=== PATIENT | male | born 1935 | race Caucasian/White ===

== ENCOUNTER 2023-09-26 17:23 | Emergency (ER) | payer OTHER, SELFPAY ==
[2023-09-26 17:36] VITALS: BP 169/80
--- NOTE | 2023-09-26 20:34 | ED.GENMED ---
History of Present Illness
General
Chief Complaint: Catheter/Tube Problem
Time Seen by Provider: 09/26/23 20:24
Travel History
Have you had any contact with someone who has COVID-19?: No
Do you have any symptoms of coronavirus? Fever > 100 degrees, chills, cough, shortness of breath, sore throat, loss of taste or smell, muscle aches, or headache?: No
History of Present Illness
History of Present Illness:
HPI: Patient presents due to concern for clogged G-tube to the point that is now nonfunctional. They come in here wanting to have the G-tube replaced. There are no other new complaints. He has a feeding tube due to prior stroke. His son and
brought him here by private vehicle.
EXAM:
GENERAL: Appears somewhat chronically ill
HEENT: Moist oral mucosa
ABDOMEN: Soft with no peritoneal signs, no tenderness, ventral wall hernia noted which is soft, 20 Armenian feeding tube noted in the left upper quadrant
NEUROLOGIC: Evidence of prior stroke, moderate communication deficit, marked dysarthria
PSYCHIATRIC: Appropriate mental status, normal insight and judgement
EXTREMITIES: Nontender, no edema, moves all extremities equally
SKIN: No rash, no lesions
TIME OF INITIAL ENCOUNTER: 8:30 PM
NUMBER AND COMPLEXITY OF PROBLEMS ADDRESSED AT THE ENCOUNTER
� Chronic conditions affecting care: Prior CVA with significant deficits, abdominal wall hernia, former smoker, high blood pressure
� Acute Exacerbation and/or Progression of Chronic Illness: This is an acute but recurring problem
� Differential Diagnosis includes: Feeding tube clogged, feeding tube malposition
AMOUNT AND/OR COMPLEXITY OF DATA TO BE REVIEWED AND ANALYZED
� I performed an independent evaluation of and my interpretation is:
EKG:
CT:
X-rays: X-ray with contrast shows good position of the feeding tube
Laboratory Studies:
Other:
� Review of other/old records: I reviewed records, the patient had a feeding tube visit to the ED in 2021 and 2022
� Clinical information was obtained by an independent historian: I spoke to and son at bedside
� Prescriptions/Medications Considered but not given:
� Further testing considered but not performed:
RISK OF COMPLICATIONS AND/OR MORBIDITY OR MORTALITY OF PATIENT MANAGEMENT
� Social determinants of health affecting care: Lives at home
� Discussion with other providers:
� Escalation of care including admission/observation vs risk of discharge considered: I placed a new 20 Armenian tube difficulty in 1 attempt. Will send for confirmatory study. Imaging study confirmed.
Past History
Past History
ED Past Medical History: CVA (Right sided weakness), GERD, HTN, Hypercholesterolemia and Other (Intracranial hemorrhage, left retinal hemorrhage, PNA, Dysphasia, PNA, ); Negative IDDM
ED Past Surgical History: Cardiac (Pacemaker), Orthopedic (Right hip replacement, right hand surgery, ), Urological (Right testicular repair) and Other (hernia repair X 2, g tube)
Social History
Tobacco: Former smoker (Quit many years ago)
Alcohol: None
Drug: None
Personal:
Living: with family
Employment: Retired
Family History
Family History: Hypertension
Phy Exam
Physical Exam
Physical Exam:
See HPI
Course
Orders/Labs/Results
Orders:
Orders
09/26/23 20:50
Tube Check [CR Cont Inj Eval Tube(by Rad)] Urgent
Comment:
Reason For Exam: new tube placed in ED
Vital Signs
Initial and Last Documented VS:
Initial Vital Signs
Temp Pulse Resp BP Pulse Ox
98.0 F 63 20 169/80 95
09/26/23 17:36 09/26/23 17:36 09/26/23 17:36 09/26/23 17:36 09/26/23 17:36
Last Documented Vital Signs
Temp Pulse Resp BP Pulse Ox
98.0 F 63 20 169/80 95
09/26/23 17:36 09/26/23 17:36 09/26/23 17:36 09/26/23 17:36 09/26/23 17:36
Procedures
Other
Indication for procedure:: G-tube replacement
Procedure completed by: NeDr. Encinas
Consent form signed: No
Additional Procedure:
I placed a feeding tube (new 20 Armenian) in 1 attempt and instilled 10 mL of saline
*Critical Care Note
Total Time (30-74mins, 75-104mins- exclusive of procedures): Not Applicable
ED Attending Note
-
Portions of this chart may have been created with voice recognition software.� Occasional wrong word or��sound alike� substitutions may have occurred due to the inherent limitations of voice recognition software.
Discharge Plan
Departure
Patient Disposition: Home (Routine Discharge)
Date of Disposition: 09/26/23
Time of Disposition: 21:58
Patient with high blood pressure during this ER visit?: Yes
Discharge Problem:
Blockage of feeding tube
Prescriptions:
No Action
ascorbic acid (vitamin C) [Vitamin C] 500 MG tablet
500 mg feeding tube DAILY 0RF
cholecalciferol (vitamin D3) 1,000 UNITS tablet
1,000 units feeding tube Q48H 0RF
clopidogrel 75 MG tablet
75 mg feeding tube DAILY Qty: 30 0RF
Rx Instructions:
HOLD post procedure- ok to resume Monday 08/28
aluminum hydrox-magnesium carb [Acid Gone Antacid] 15 ML suspension
15 ml feeding tube QIDPRN PRN (Reason: gas) 0RF
fluoxetine 20 MG capsule
20 mg PO DAILY Qty: 30 0RF
atorvastatin 40 MG tablet
40 mg feeding tube QPM Qty: 30 0RF
famotidine 40 MG tablet
40 mg feeding tube BID Qty: 60 0RF
potassium chloride 20 MEQ/15 ML liquid
20 meq feeding tube DAILY Qty: 30 0RF
amlodipine 10 MG tablet
10 mg feeding tube DAILY Qty: 30 0RF
hydrochlorothiazide 25 MG tablet
25 mg feeding tube DAILY Qty: 30 0RF
losartan 100 MG tablet
100 mg feeding tube DAILY Qty: 30 0RF
Referrals:
Michael Colunga MD [Family Provider] -
Interventions
Interventions:
*Risk Screen - Suicide Last Done: 09/26/23 17:36
*General Assessment Last Done: 09/26/23 17:36
*Neglect/Abuse Screening Last Done: 09/26/23 17:36
ED- Fall Risk Assessment Last Done: 09/26/23 20:39
*ED COVID-19 Vaccine History Last Done: 09/26/23 20:39
AK-Kwmwda-Ajirfblkwn Assessment Last Done: 09/26/23 20:39
ED-Male Genitourinary Assessment Last Done: 09/26/23 20:39
Discharge Date and Time
Print Language: JAPANESE
[2023-09-26 22:22] VITALS: BP 183/83
== END 2023-09-26 22:38 | disposition home or self-care (01) ==
LOC: EMR 17:23
PROVIDERS: EMERGENCY PHYSICIAN Emergency Medicine; FAMILY PHYSICIAN Family Medicine
DX: K94.23 Gastrostomy malfunction (principal); I10 Essential (primary) hypertension; Z86.73 Personal history of transient ischemic attack (TIA), and cerebral infarction without residual deficits; Z87.891 Personal history of nicotine dependence
CPT/HCPCS: 99284; 49465

== ENCOUNTER 2024-01-02 10:18 | Day surgery (SDC) | payer OTHER, SELFPAY ==
[2024-01-02] VITALS (11 sets, daily range): BP systolic 148–195; BP diastolic 76–106; BMI 27.6
[2024-01-02 11:28] LABS: Hematocrit 41.1 % (39.0-52.0); Hemoglobin 14.1 g/dL (13.0-18.0); Mean Corp Hgb Conc. 34.3 g/dL (33.0-37.0); Mean Corpuscular Hgb 34.1 pg (27.0-31.0); Mean Corpuscular Volume 99.3 fL (80.0-94.0); Mean Platelet Volume 10.7 fL (7.4-10.4); Platelet Count 145 10^3/uL (130-400); Red Blood Cell Count 4.14 10^6/uL (4.70-6.10); Red Cell Dist. Width 13.6 % (11.5-14.5); White Blood Cell Count 4.6 10^3/uL (4.8-10.8)
[2024-01-02 11:42] LABS: Blood Urea Nitrogen 24 mg/dl (9-20); Calcium 8.7 mg/dl (8.4-10.2); Carbon Dioxide 34 mmol/L (22-30); Chloride 94 mmol/L (98-107); Estimated Creatinine Clearance 78 ml/min; Glucose 98 mg/dl (70-99); Potassium 4.4 mmol/L (3.5-5.1); Sodium 130 mmol/L (135-145); eGFR > 60.00
--- NOTE | 2024-01-02 11:56 | PTCARENOTE ---
Addendum entered by Alpa Colon RN 01/02/24 12:18:
Dr Zamora also made aware of pt's sodium of 130. No further treatment ordered at this time. Will continue to monitor.
Original Note:
Pt's NA is [address] Irby made aware. No further treatment ordered at this time. Will continue to monitor.
--- NOTE | 2024-01-02 12:19 | PTCARENOTE ---
Med[employer]onic rep at pt bedside interrogating pt's device.
--- NOTE | 2024-01-02 13:32 | ITS.CL.PACE ---
Spectroscopist - Pacemaker Implant
Pacemaker Implant
Procedure Report:
PACEMAKER GENERATOR CHANGE
Date of Procedure: 01/02/24
Primary Care Physician: Michael Colunga M.D.
Primary Frog Farmer: Lynsey Matute D.O.
PROCEDURES:
1. Removal of dual chamber PPM generator at [facility]
2. Implant of new dual chamber PPM generator
INDICATION FOR PROCEDURE:
1. PPM generator at [facility]
2. 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
The patient was prepped and draped in sterile fashion. Lidocaine with epi was used for local anesthesia. An incision was made along the previous incision and the device and leads were carefully dissected from the pocket. Hemostasis was obtained
with electrocautery. The leads were from the device header and tested using an external analyzer. The pocket was liberally irrigated with antibiotic solution. Once testing (see below) showed adequate and stable function, the leads were
connected to the generator header and the leads and generator were placed within the pocket. The pocket was closed in the typical fashion.
EXPLANTED PPM GENERATOR:
Medtronic [id number], SN: [id number]
IMPLANTED PPM GENERATOR:
Medtronic [id number], SN [id number]
RETAINED LEADS:
RA: Medtronic 5076-45, SN: [id number]
RV: Medtronic 5076-52, SN: [id number]
DEVICE TESTING:
Sensing: RA 1 mV, RV na
Capture: RA 0.5 V @ 0.4ms, RV 1.5 V @ 0.4ms
Ohms: RA 400 , RV 450
FINAL PROGRAMMING
Eugenio Pacing: DDDR 60 - 130 ppm
COMPLICATIONS:
None
CONCLUSIONS:
1. Successful explant of dual chamber permanent pacemaker
2. Successful implant of dual chamber permanent pacemaker
RECOMMENDATIONS:
1. In-Office wound check in 7-10 days.
Copy to:
Michael Colunga M.D.
Lynsey Matute D.O.
--- NOTE | 2024-01-02 15:20 | PTCARENOTE ---
Right hand noted to be swollen. Pt's has right sided weakness due to previous CVA. IVF's d/c'd upon initial arrival to recovery room so no further IVF's were infusing through right hand IV. Right hand with +2 right radial pulse, good sensation, and
warm to touch. Pt's states his right hand swells occasionally on and off 'for no reason'. Right INT d/c'd without difficulty. Georgette CABALLERO in to evaluate pt's right hand. Pt instructed to elevate his right arm once he arrives home. Pt and pt's
family (pt's and pt's son) all verbalize understanding of instructions given.
== END 2024-01-02 15:25 | disposition home or self-care (01) ==
LOC: CATH 10:18
PROVIDERS: ATTENDING PHYSICIAN Internal Medicine Cardiovascular Disease; FAMILY PHYSICIAN Family Medicine; OTHER PHYSICIAN Internal Medicine Cardiovascular Disease
DX: Z45.010 Encounter for checking and testing of cardiac pacemaker pulse generator [battery] (principal); I44.2 Atrioventricular block, complete; Z86.73 Personal history of transient ischemic attack (TIA), and cerebral infarction without residual deficits; Z87.891 Personal history of nicotine dependence; I10 Essential (primary) hypertension; K21.9 Gastro-esophageal reflux disease without esophagitis
CPT/HCPCS: 33228; 80048; 85027; 93005; C1785

== ENCOUNTER 2024-08-02 05:16 | Inpatient (IN) | payer OTHER, SELFPAY ==
[2024-08-02] VITALS (75 sets, daily range): BP systolic 78–133; BP diastolic 47–106; BMI 28.2; BMI 27.2
--- NOTE | 2024-08-02 02:18 | ED.GENMED ---
History of Present Illness
General
Chief Complaint: Breathing Problem
Source: patient, ambulance crew and previous hospital records
Exam Limitations: clinical condition (Respiratory distress. Expressive aphasia. Patient able to nod yes and no appropriately.)
Time Seen by Provider: 08/02/24 02:09
Nursing documentation reviewed up to this point in time: agreed with
History of Present Illness
History of Present Illness:
This is an 88-year-old gentleman who resides at home with his family. 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 He also has history of
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
He presents via EMS after onset of acute shortness of breath tonight with room air pulse ox 88% upon EMS arrival. Placed on nonrebreather mask with improvement in pulse ox to 96%. He is noted to have a cough and vomited 1 time just after EMS
arrival. No report of vomiting prior to EMS arrival.
He denies pain.
Currently feeling improved with nonrebreather mask in place.
Patient has severe expressive aphasia/aphonia but able to to nod yes and no appropriately and following simple commands appropriately.
Past History
Past History
ED Past Medical History: CVA (Right sided weakness), GERD, HTN, Hypercholesterolemia, Valvular disease (Mild aortic stenosis noted on echocardiogram 2019) and Other (Intracranial hemorrhage, left retinal hemorrhage, PNA, Dysphasia, AV
block-pacemaker in place); Negative IDDM
ED Past Surgical History: Cardiac (Pacemaker), Orthopedic (Right hip replacement, right hand surgery, ), Urological (Right testicular repair) and Other (hernia repair X 2, g tube)
Social History
Tobacco: Former smoker (Quit many years ago)
Alcohol: None
Drug: None
Personal:
Living: with family
Employment: Retired
Family History
Family History: Hypertension
Phy Exam
Physical Exam
Physical Exam:
GENERAL: 88-year-old gentleman appears somewhat chronically debilitated, bedbound. He is awake and alert, nonverbal but able to nod yes and no appropriately and able to follow commands. Nonrebreather mask in place. Intermittent moist
nonproductive cough is noted.
EYE: pupils equal and reactive. anicteric
NECK: Supple, nontender, no meningismus, no significant adenopathy. Mild JVD.
ENT: Nonrebreather mask in place. oral mucosa is moist. No rhinorrhea.
CARDIAC: Regular rate and rhythm. no murmur.
LUNGS: Mild to moderate resting tachypnea. Bibasilar rales/rhonchi.
ABDOMEN: Soft, nondistended, without focal tenderness, PEG tube left upper quadrant, moderate size soft nontender abdominal wall hernia at PEG tube site, no r/g, normoactive BS.
NEUROLOGICAL: Awake and alert, nodding appropriately to yes and no questions. Severe expressive aphasia, chronic right hemiparesis.
SKIN: Mildly hot to touch and dry, mildly pale in color, skin intact. No rash.
MUSCULOSKELETAL: Trace pretibial edema bilateral lower extremities. Peripheral pulses are full and equal b/l. No palpable tenderness.
PSYCH: Normal and appropriate interaction.
Scores
Heart Failure Risk
Heart Failure Risk Score: Yes
History of Stroke or TIA: Yes
History of intubation for respiratory distress: No
Heart rate on ED arrival >/= 110: No
SaO2 <90% on arrival on room air: Yes
HR >/=110 during 3min walk test (or too ill to perform test): Yes
ECG has acute ischemic changes: No
Urea >/=12mmol/L (BUN 33.6mg/dL): Yes
Serum CO2>/=35mmol/L: No
Troponin I or T elevated to NV Level (0.4mg/dL): No
NT-proBNP >/=5,000ng/L (5,000pg/ml): Yes
HF Risk Score: 6
Admission Status: VERY HIGH RISK 55.3% Consider admission to hospital
Sepsis
Sepsis Screening
Sepsis Assessment: Sepsis
Sepsis Screening: Hypotension and Vasopressor support required
Sepsis Screen
Sepsis Screen: Sepsis
Date: 08/02/24
Time: 05:24
Course
Orders/Labs/Results
Orders:
Orders
08/02/24 02:08
Electrocardiogram (*1) Urgent
Reason for Study: Other
Other Reason for Exam: Respiratory Distress
Cardiac Monitoring- Treatment ONCE
EKG- Treatment ONCE
IV Insert/Care/Rem.- Treatment PRN
CR Chest Portable - 1 View Urgent
Comment:
Reason For Exam: respiratory distress
Reason Study Needs to be Portable: Patient Unstable
O2 Therapy [RESP] Urgent
Titrate/Wean O2 to maintain O2 sat greater than (%): 93
Special Instructions: TO MAINTAIN CONTINUOUS O2 SATS >/= 93%
Pulse Ox/cont/shift [RESP] Urgent
Quantity: 1
Special Instructions: continuous pulse ox
08/02/24 02:29
Acetaminophen 1000MG/100Ml [Ofirmev] 1,000 mg in 100 ml IV ONCE
Acetaminophen IV Indication:: Ileus/Delayed Bowel Func.
08/02/24 02:35
Basic Metabolic Panel Urgent
Comment: NO K
COVID-19 Antigen Urgent
Source: Nasal Swab
Complete Blood Count/With Diff Urgent
Lactic Acid Urgent
NT-proBNP Urgent
Troponin I Urgent
Influenza A+B Rapid Molecular Urgent
JEREL Source: Nasal Swab
Specimen Description:
08/02/24 02:36
Azithromycin 500 mg/250 ml [Zithromax Infusion] 500 mg in 250 ml IV NOW
CefTRIAXone [Rocephin] 1,000 mg IV NOW STA
08/02/24 02:40
Blood Culture Q30M
JEREL Source: Blood/Venous
Specimen Description:
Blood Culture Q30M
JEREL Source: Blood/Venous
Specimen Description:
08/02/24 03:41
0.9% Sodium Chloride 1000 ml [Nss] 2,700 ml IV NOW STA
08/02/24 04:20
LYTES [Electrolytes] Urgent
08/02/24 04:24
NORepinephrine 4 MG/250 ML [Levophed] 4 mg in 250 ml IV NOW
Initial dose in mcg/min, then titrate:: 5
Titrate to keep:: MAP > 65 mmHg
Titrate by mcg/min:: 1-2 mcg/min
Frequency of titrations (minutes):: 5
Maximum dose in ICU in mcg/min:: 30
Maximum dose in IMU in mcg/min:: 8
Maximum dose in IVU in mcg/min:: 4
Begin to taper infusion when:: Remained at goal for 4hrs
Taper by mcg/min:: 1-2 mcg/min
Frequency of taper (minutes) if patient maintains goal:: 30
Taper to off?: Yes
If infusion off & no longer maintaining goal:: Contact Provider
08/02/24 04:57
Admit/Transfer Patient As Directed
Co-Sign Provider:
Level of Care: Inpatient admission
Assign to:: IMU- Intermediate Care
Physician / Group: Herrera
Diagnosis: Pneumonia, Septic Shock
Reason for Hospitalization: Pneumonia, Septic Shock
Expected length of stay greater than two midnights?: Yes
ELOS- Estimated Length of Stay in days: 4
I certify the patient meets the requirements for IP care: Yes
08/02/24 04:58
PRN Pain Medication Management As Directed
May give lesser potent ordered pain med per pt: Yes
preference::
Protocol:: Medication orders for pain may be administered in a
manner that supports deferring to patient preference
when the pt is:
- Requesting an ordered lesser potent pain medication.
Least to most potent pain medications are defined
as: acetaminophen < NSAID < tramadol < opioids
(morphine, oxycodone, hydromorphone).
- Requesting a lesser dose of the same medication IF
ORDERED.
- Requesting a less intrusive route of administration
if both routes are prescribed by the provider (PO <
IV).
08/02/24 04:59
Code Status As Directed
Resuscitation Status: Full Code
Abnormal Lab Results
08/02/24 08/02/24
02:35 04:20
RBC 4.24 L 10^6/uL
(4.70-6.10)
MCV 99.1 H fL
(80.0-94.0)
MCH 34.4 H pg
(27.0-31.0)
MPV 11.0 H fL
(7.4-10.4)
Absolute Neuts (auto) 7.2 H 10^3/uL
(1.4-6.5)
Absolute Lymphs (auto) 0.3 L 10^3/uL
(1.2-3.4)
Neutrophils % 91.4 H %
(42.2-75.2)
Lymphocytes % 3.9 L %
(20.5-51.1)
Sodium 129 L mmol/L 130 L mmol/L
(135-145) (135-145)
Chloride 92 L mmol/L 93 L mmol/L
(98-107) (98-107)
Carbon Dioxide 31 H mmol/L 31 H mmol/L
(22-30) (22-30)
BUN 35 H mg/dl
(9-20)
Glucose 127 H mg/dl
(70-99)
Calcium 8.1 L mg/dl
(8.4-10.2)
08/02/24 02:35
08/02/24 04:20
Vital Signs
Initial and Last Documented VS:
Initial Vital Signs
Temp Pulse Resp BP Pulse Ox
103.1 F H 94 30 117/77 99
08/02/24 02:09 08/02/24 02:09 08/02/24 02:09 08/02/24 02:09 08/02/24 02:09
Last Documented Vital Signs
Temp Pulse Resp BP Pulse Ox
103.1 F H 78 23 109/63 97
08/02/24 02:09 08/02/24 05:05 08/02/24 05:05 08/02/24 05:05 08/02/24 05:05
MDM/Problems Addressed
Differential Diagnosis Includes:
Acute dyspnea, concern for pneumonia, CHF, ACS, progression of aortic stenosis. Thromboembolism/PE is much less likely.
Noted to be significantly febrile 103 �F rectal temperature. Significant concern for pneumonia, concern for sepsis.
Will give an IV dose of Tylenol, check chest x-ray, labs, lactic acid, blood cultures, urinalysis with reflex to culture.
Will continue supplemental oxygen.
Due to acute hypoxemic respiratory failure requiring supplemental oxygen patient will require acute hospitalization.
IV antibiotics initiated.
Chronic conditions affecting care: HTN and Neurological disorder
*Radiology
Radiology exam reviewed: preliminary read by ED provider (Chest x-ray shows large right lower lobe infiltrate, also concern for smaller focal airspace disease/infiltrate left lower lobe.)
*Pulse Oximetry
Patient hypoxic: yes
*EKG
Interpreted by ED Provider?: Yes
Interpretation: abnormal
Comparison EKG: no changes (Unchanged from previous December 2023)
Rate: normal
Rhythm: PVC's and ventricular paced (Atrial sensed, ventricular paced rhythm)
*Paid Search Marketing Analyst Interpretation
Rate: normal
Rhythm: ventricular paced (Atrial sensed, ventricular paced rhythm)
*Critical Care Note
Total Time (30-74mins, 75-104mins- exclusive of procedures): 30
comment:
Critical care statement: A total of 30 minutes of critical care time was provided for this patient. This includes management of unstable vital signs, evaluation of the patient at bedside, reviewing the patient's pertinent medical records, discussion
with consultants, review of old EKGs and review of pertinent medical records. This time with separate from time utilized to perform the aforementioned documented procedures
Update Note
Update Note:
03:47
COVID and flu testing are negative.
Chest x-ray shows dense right lower lobe infiltrate and concern for small infiltrate left lower lobe. No convincing evidence of CHF.
Lactic acid 2.0.
With resolution of fever blood pressure is now drifting down. IV fluid bolus infusing.
Will continue to monitor blood pressure and consider IV Levophed if MAP drops below 65.
Will attempt to transition nonrebreather mask to nasal cannula oxygen.
04:30
BP systolic of 88 with a MAP of 64.
Will initiate Levophed.
BNP elevated near 11,000 but overall patient appears improved, improvement in oxygenation, improvement in respiratory rate. Will continue initial IV fluid bolus, IV Levophed for BP support.
ED Attending Note
-
Portions of this chart may have been created with voice recognition software.� Occasional wrong word or��sound alike� substitutions may have occurred due to the inherent limitations of voice recognition software.
Discharge Plan
Departure
Patient Disposition: Admit
Date of Disposition: 08/02/24
Time of Disposition: 03:47
Admit to: IMU
Admit to doctor: Herrera
Presentation/result/management discussed w/ accepting MD/DO: Hospitalist
Condition: Serious
Discharge Problem:
Community acquired bacterial pneumonia, Acute hypoxemic respiratory failure, Sepsis
Prescriptions:
No Action
ascorbic acid (vitamin C) [Vitamin C] 500 MG tablet
500 mg feeding tube DAILY 0RF
cholecalciferol (vitamin D3) 1,000 UNITS tablet
1,000 units feeding tube Q48H 0RF
clopidogrel 75 MG tablet
75 mg feeding tube DAILY Qty: 30 0RF
metoprolol tartrate 75 mg Tablet
75 mg feeding tube BID
furosemide 20 mg Tablet
20 mg PO DAILY
atorvastatin 40 MG tablet
20 mg feeding tube QPM
famotidine 40 MG tablet
40 mg feeding tube BID Qty: 60 0RF
potassium chloride 20 MEQ/15 ML liquid
20 meq feeding tube DAILY Qty: 30 0RF
losartan 100 MG tablet
100 mg feeding tube DAILY Qty: 30 0RF
Referrals:
UNKNOWN - PT DOES,NOT KNOW [Family Provider] -
Discharge Date and Time
Print Language: BERMUDIAN
[2024-08-02] MEDS: OFIRMEV 100 IV (02:45)
[2024-08-02] MEDS: ROCEPHIN 1000 MG IV (03:05)
[2024-08-02] MEDS: ZITHROMAX INFUSION 250 IV (03:05)
[2024-08-02 03:07] LABS: % Basophils 0.4 % (0-2); % Eosinophils 0.1 % (0-6); % Immature Granulocytes 0.4 % (0-0.5); % Lymphocytes 3.9 % (20.5-51.1); % Monocytes 3.8 % (1.7-9.3); % Neutrophils 91.4 % (42.2-75.2); Absolute Lymphocytes 0.3 10^3/uL (1.2-3.4); Absolute Monocytes 0.3 10^3/uL (0.1-0.6); Absolute Neutrophils 7.2 10^3/uL (1.4-6.5); Hemoglobin 14.6 g/dL (13.0-18.0); Mean Corp Hgb Conc. 34.8 g/dL (33.0-37.0); Mean Corpuscular Hgb 34.4 pg (27.0-31.0); Mean Corpuscular Volume 99.1 fL (80.0-94.0); Nucleated Red Blood Cells % 0 % (-); Platelet Count 147 10^3/uL (130-400); Red Blood Cell Count 4.24 10^6/uL (4.70-6.10); Red Cell Dist. Width 13.2 % (11.5-14.5); White Blood Cell Count 7.9 10^3/uL (4.8-10.8)
[2024-08-02 03:23] LABS: COVID-19 Antigen Negative (Negative)
[2024-08-02 03:32] LABS: Blood Urea Nitrogen 35 mg/dl (9-20); Calcium 8.1 mg/dl (8.4-10.2); Carbon Dioxide 31 mmol/L (22-30); Chloride 92 mmol/L (98-107); Estimated Creatinine Clearance 77 ml/min; Glucose 127 mg/dl (70-99); Sodium 129 mmol/L (135-145); eGFR > 60.00
[2024-08-02 03:44] LABS: NT-proBNP 10900 pg/ml; Troponin I 0.016 ng/ml
[2024-08-02] MEDS: NSS 2700 ML IV (03:47)
[2024-08-02] MEDS: LEVOPHED 250 IV ×2 (04:28→16:13)
[2024-08-02 04:59] LABS: Carbon Dioxide 31 mmol/L (22-30); Chloride 93 mmol/L (98-107); Sodium 130 mmol/L (135-145)
--- NOTE | 2024-08-02 05:04 | HPS.HSE ---
Family Physician
-
Family Physician: NOT KNOW UNKNOWN - PT DOES
Chief Complaint
-
SOB
History of Present Illness
Patient is an 88y M with PMH significant for R hemiparesis / dysarthria s/p stroke who presents to ED complaining of SOB. History obtained from patient and family at the bedside. Patient was in his usual state of health yesterday afternoon.
connected his tube feedings around 9:30 PM and then they went to bed. He woke her in the middle of the night and complained of feeling SOB. 911 was called and patient was brought to the ED for further evaluation.
Patient had a single episode of N/V when being placed on the stretcher by EMS. Family notes that he will occasionally have N/V if he moves around very much during / shortly after his tube feeds.
Patient has chronic R hemiparesis and dysarthria. He typically has copious oral secretions / drooling.
In the ED, patient was febrile to 103. His BP declined and he required administration of vasopressors for hypotension despite IVFs.
At the time of my examination, patient was much more alert / interactive than on initial arrival.
Medical History
Past Medical History
Past Medical History: Reports Other
Additional Past Medical History:
Hypertension
ASCVD / CVA
Right Hemiparesis, Dysarthria
Aortic Stenosis
Chronic Hyponatremia
Symptomatic Bradycardia s/p PPM
Past Surgical History: Reports Other
Additional Past Surgical History:
Right Hand Surgery
PEG Placement
PPM Placement
Hernia Repair
Right RAZ
Social History
Tobacco: Former Smoker
Alcohol: None
Drug: None
Personal:
Living: With Family
Family History
Family History: Not pertinent
Allergies / Home Medications
Allergies reflects when Allergies were last updated in [facility].
Home Medications with original date entered in [facility]
Allergy/Medication List:
Allergies
Allergy/AdvReac Type Severity Reaction Status Date / Time
lisinopril Allergy Tongue Verified 01/02/24 11:13
Swelling
Vnmexhw-ULV-TwX Reductase Allergy jaundice Verified 01/02/24 11:13
Inhibitor
[Ixjqnrc-Gyn-Tui Reductase
Inhibitor]
Home Medications
ascorbic acid (vitamin C) 500 mg tablet (Vitamin C) 500 mg feeding tube DAILY 07/19/17
cholecalciferol (vitamin D3) 25 mcg (1,000 unit) tablet 1,000 units feeding tube Q48H 07/19/17
famotidine 40 mg tablet 40 mg feeding tube BID ##60 08/15/17
losartan 100 mg tablet 100 mg feeding tube DAILY ##30 08/15/17
potassium chloride 20 mEq/15 mL oral liquid 20 meq (15 mL) feeding tube DAILY ##30 08/15/17
clopidogrel 75 mg tablet 75 mg feeding tube DAILY ##30 08/26/17
metoprolol tartrate 75 mg tablet 75 mg feeding tube BID 01/02/24
atorvastatin 40 mg tablet 20 mg feeding tube QPM 08/02/24
furosemide 20 mg tablet 20 mg PO DAILY 08/02/24
Review of Systems
-
History Source: Patient
A 12 point ROS was completed and negative except as noted: Yes
Constitutional: Reports Fever and Fatigue; Denies Chills
EENT: Denies Sore Throat
Respiratory: Reports Cough and Trouble Breathing
Cardiac: Denies Chest Pain or Palpitations
Abdomen/GI: Reports Nausea and Vomiting; Denies Abdominal Pain or Diarrhea
: Denies Dysuria or Frequency
Musculoskeletal: Reports Edema; Denies Joint Pain
Neurological: Denies Dizzy or Headache
Psych: Denies Depression or Anxiety
Physical Exam
Vital Signs
Vital Signs
Temp Pulse Resp BP Pulse Ox
103.1 F H 74 25 113/62 97
08/02/24 02:09 08/02/24 05:00 08/02/24 05:00 08/02/24 04:55 08/02/24 05:00
Physical Exam
General: Other (88y M in no acute distress. Awake and alert.)
HEENT: Other (Dry MM. Neck supple.)
Respiratory: Other (Coarse breath sounds at both bases - R > L.)
Cardiac: S1/S2, Regular Rhythm and Murmur (II/ GRISEL)
GI: Soft, Non Tender, Non Distended, Normal Bowel Sounds and Other (Left G tube site intact. Midline abdominal hernia without tenderness.)
Musculoskeletal: No Clubbing, No Cyanosis and Other (2+ pitting edema LE - R > L.)
Neuro: AO x 3 and Other (R hemiparesis, facial droop (chronic).)
Laboratory Results
-
08/02/24 02:35
08/02/24 04:20
Laboratory Results
Lactic Acid 2.0 mmol/L (0.7-2.0) 08/02/24 02:35
Total Bilirubin Cancelled 08/02/24 02:35
AST Cancelled 08/02/24 02:35
ALT Cancelled 08/02/24 02:35
Alkaline Phosphatase Cancelled 08/02/24 02:35
Troponin I 0.016 ng/ml 08/02/24 02:35
Impression/Plan
-
A/P: 88y M with PMH significant for R hemiparesis s/p CVA who presents to ED for evaluation of SOB that started suddenly this PM.
RLL Pneumonia
Septic Shock secondary to the above
Acute Hypoxemic Respiratory Failure secondary to the above
- Admit for further evaluation and treatment.
- Patient presents with fever, tachypnea and hypotension refractory to IVFs with CXR demonstrating RLL pneumonia.
- IV abx with Zosyn to cover for suspected aspiration given abrupt onset, risk factors, etc.
- COVID / Flu negative in the ED.
- IVFs support, antipyretics, O2 / supportive care.
- Follow for clinical improvement.
- Continue pressor support and wean as able.
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
Chronic TF Dependence
- Hold tube feeds acutely. OK for meds via tube.
- NPO.
- Continue clopidogrel.
- Chronic aspiration risk and given location / abrupt onset of pneumonia aspiration seems likely.
Chronic Hyponatremia
- Stable. Not significantly changed from prior.
- IVFs for now.
- Follow for changes and adjust free water intake as needed.
Aortic Stenosis
Chronic Edema
- Update Echo.
- IVFs for now given sepsis / shock / hypotension.
- May benefit from eventual diuresis once clinically improved.
Benign Hypertension
- Hold losartan acutely given hypotension.
DVT Prophylaxis: Subcut heparin
Code Status: Full
--- NOTE | 2024-08-02 06:37 | PTCARENOTE ---
received pt from ED, pt Oriented, nods appropriately, R sided hemiparesis, lower extremity weakness, denies pain, KOOTENAI, family @ bedside to help with admission questions, paced on the monitor + pulses, +2 B/L lower extremities, +3 R upper extremity,
lungs coarse c crackles @ the bases, 4l NC SpO2 95% BSx4 G tube @ 6cm, CC#30 due to void, wounds per worklist, 20G RFA, 20G L hand, levo per worklist, fluids from ED running by gravity, call rodriguez within reach, otherwise refer to documentation.
[2024-08-02] MEDS: LR 1000 IV ×3 (07:38→23:19)
[2024-08-02] MEDS: PROTONIX IV 40 MG IV (07:42)
[2024-08-02] MEDS: HEPARIN 5000 UNITS SC (07:42)
[2024-08-02] MEDS: PLAVIX 75 MG TUBE (07:44)
[2024-08-02] MEDS: ZOSYN 50 IV ×3 (07:54→18:00)
--- NOTE | 2024-08-02 08:36 | W.PN.HOSP.TC ---
Today's Communication/Plan
-
upgrade to ICU
cont pressors
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
cont IVF
NPO--hold tube feeds
cont zosyn
follow cultures
Assessment / Plan
Assessment / Plan
pt is an 88 year old male
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
Right Hemiparesis/Dysarthria as Late Effect of CVA with PEG tube dependence--holding tube feeds--agree meds can be given through tube--baseline, pt uses walker to get to bathroom-- primary caregiver at home--uses Jevity 1.5 90ml/hr from 9PM to
8AM per son--when more appropriate will order PT/OT
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
Aortic Stenosis/Chronic Edema--agree with IVF given shock--agree with updating echo
Essential Hypertension--all meds on hold
DVT Proph--Subcut heparin
Code Status-- Full code--reconfirmed with son at bedside (he stated that that is what he wants...)
Total Critical Care Time 33 minutes. I was immediately available to the patient and staff. I personally examined, reviewed labs, diagnostic images/reports, interpretations, treatment plans, discussed patient care with other providers and family
or caregivers (if patient is unable to make decisions), entered orders as appropriate and documented the medical record.
Anticipated Discharge: > 48 hours
Subjective/Interval History
-
Date of Service: August 02, 2024
pt nonverbal with me--son at bedside
Objective Data
-
Labs:
Laboratory Results
08/02/24 08/02/24
02:35 04:20
WBC 7.9
Hgb 14.6
Hct 42.0
Plt Count 147
Sodium 129 L 130 L
Potassium 4.0
Chloride 92 L 93 L
Carbon Dioxide 31 H 31 H
BUN 35 H
Creatinine 0.7
Glucose 127 H
Calcium 8.1 L
Total Bilirubin Cancelled
AST Cancelled
ALT Cancelled
Alkaline Phosphatase Cancelled
Vital Signs:
max temp for 24 hours
08/02/24
02:09
Temp 103.1 F H
Vital Signs
Temp Pulse Resp BP Pulse Ox
98.2 F 76 23 91/56 94
08/02/24 08:00 08/02/24 06:35 08/02/24 06:35 08/02/24 07:43 08/02/24 06:35
Review of Systems
-
Unable to obtain full review of systems at this time due to: Acuity and Patient Non-verbal (with me)
Physical Exam
-
General: Appears Chronically Ill
HEENT: Normocephalic, Atraumatic and Oxygen
Respiratory: Clear to Auscultation (limited exam--anteriorly only)
Cardiac: Regular Rhythm and S1/S2; Negative Murmur
GI: Soft, Nontender, Nondistended, Normal Bowel Sounds and Peg Tube
Genito-urinary: Negative Fry (condom cath)
Musculoskeletal: No Clubbing and No Cyanosis; Negative No Edema (2_ LE edema bilaterally)
Neuro: Negative Awake or Alert
Psych: Calm
[2024-08-02] MEDS: DUONEB 3 ML INH ×4 (08:37→19:57)
--- NOTE | 2024-08-02 08:44 | PTCARENOTE ---
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 Alert and oriented. severe expressive aphasia, makes needs known by moaning and nodding the head, followsw commands. on 4L O2 via NC, sats 99 %. on levo gtt, titrated to maintain MAP >65. NPO at present, HOB elevated
30degrees. family at bedside updated on plan of care. ICU orders placed and noted. cont to monitor and anticipate all the needs
--- NOTE | 2024-08-02 08:49 | CM ---
Patient seen at bedside in ICU. Patient son also present and stated that his father lives with his mother in a 2 story home. Patient has a first floor set up with a ramp to enter home. Patient son stated that PCP is Dr. Michael Colunga and he uses the
[facility]. Patient goes to the [facility] and son is uncertain who supplied the DME of hospital bed and Jevity. Patient also has a nurse that comes in one time a week. Patient son states that patient was at [facility] approx 7 years ago and that they
are uncertain what patient will need at discharge, plan would be to return home if possible. Patient has a walker at home and otherwise uses walker to go to bathroom and living room with assist. CM will continue to follow for discharge planning
needs.
Plan; home with VN vs SNF
--- NOTE | 2024-08-02 09:03 | CON.INTV ---
Consultation
Consultation Request
Date/Time Consultation Requested: 08/02/2024836
Date/Time Consultation Performed: 08/02/2024857
Requesting Provider: Dr. Alvarez
Performing Provider: Dr. Boyle
Reason for Consultation: Shock
Medical History
-
Chief Complaint: SOB
History of Present Illness:
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
07/12/2017), history of CVA/ICH (2011), history of left posterior fossa meningioma, history of EMILIE, venous insufficiency, dyslipidemia, hypertension and aortic stenosis who presents with shortness of breath from home. Per EMS, patient was receiving
tube feeds through a PEG tube on their arrival, PEG tube feedings were stopped and patient vomited and then he desaturated to 84% on room air. Placed on the high flow at 10 L/min with saturations improving to 94%. Patient at baseline is nonverbal.
He was in his usual state of health up until this event happened. His connected his tube feedings at around 9:30 PM and then they went to bed, and the patient woke up his in the middle of the night complaining of shortness of breath.
According to the family, the patient has nausea/vomiting if he moves around too much after his tube feeds are started. Per family, he also has copious amounts of oral secretions/drooling/phlegm that he produces. In the ER he was febrile to 103.1
�F, pulse rate 94, respiratory rate 30, BP 117/77, and saturating 99% on room air. Initial labs showed normal WBC at 7.9, Hb 14.6, platelet count 147, sodium 129, serum bicarbonate level 31, glucose 127, lactate 2, proBNP 10,900, troponin negative
at 0.016, and COVID-19 antigen negative. Blood cultures were collected x 2. CXR showed small bilateral pleural effusions with adjacent consolidative opacities/atelectasis (R >L). In the ER he was given 2.7 L total of NS 0.9%, ceftriaxone,
Zithromax, IV Tylenol and then started on Levophed as SBP was low in the 80�90s. He was initially admitted to the IMU. This morning, patient's Levophed requirements continue to rise and he was upgraded to the ICU. [facility] [employer] service now
consulted for additional management/recommendations.
When I saw the patient, he was resting in bed in no acute distress. Patient's son, Sacha, patient's , Alessandra, and the patient's family friend, Eliz, were all at bedside and all questions were answered. Patient currently on Levophed at 6 mcg/min with
BP 92/58, heart rate 74 and saturating 95% on 4 L/min nasal cannula. Patient is in no acute distress.
PMHx: Hypertension, history of CVA, history of EMILIE, aortic stenosis, dyslipidemia, complete heart block s/p pacemaker (2018), history of CVA/ICH (2011)
PSHx: History of gastrostomy tube, pacemaker, hernia repair, J-tube
Past Medical History
Past Medical History: Other (Above as per HPI)
Past Surgical History: Other (Above as per HPI)
Social History
Tobacco: Former Smoker
Alcohol: None
Drug: None
Family History
Family History: CAD (Father)
Allergies / Home Medications
Allergies
Allergy/AdvReac Type Severity Reaction Status Date / Time
lisinopril Allergy Tongue Verified 01/02/24 11:13
Swelling
Fwzvcaj-SBR-IhP Reductase Allergy jaundice Verified 01/02/24 11:13
Inhibitor
[Lilfxna-Oep-Byd Reductase
Inhibitor]
Home Medications
�Medication �Instructions �Recorded �Confirmed �Last Taken �Type
ascorbic acid (vitamin C) 500 mg 500 mg feeding tube DAILY 07/19/17 08/02/24 01/02/24 08:00 Rx
tablet (Vitamin C)
cholecalciferol (vitamin D3) 25 1,000 units feeding tube Q48H 07/19/17 08/02/24 01/02/24 08:00 Rx
mcg (1,000 unit) tablet
famotidine 40 mg tablet 40 mg feeding tube BID ##60 08/15/17 08/02/24 01/02/24 08:00 Rx
losartan 100 mg tablet 100 mg feeding tube DAILY ##30 08/15/17 08/02/24 01/02/24 08:00 Rx
potassium chloride 20 mEq/15 mL 20 meq (15 mL) feeding tube DAILY 08/15/17 08/02/24 01/02/24 08:00 Rx
oral liquid ##30
clopidogrel 75 mg tablet 75 mg feeding tube DAILY ##30 08/26/17 08/02/24 12/29/23 08:00 Rx
metoprolol tartrate 75 mg tablet 75 mg feeding tube BID 01/02/24 08/02/24 01/02/24 08:00 History
atorvastatin 40 mg tablet 20 mg feeding tube QPM 08/02/24 08/02/24 Unknown History
furosemide 20 mg tablet 20 mg PO DAILY 08/02/24 08/02/24 Unknown History
Review of Systems
-
Unable to Obtain full review of systems at this time due to: Patient Non Verbal
Vitals / Labs / Diagnostic Testing
Vital Signs
Temp Pulse Resp BP Pulse Ox
98.2 F 75 16 91/56 99
08/02/24 08:00 08/02/24 08:43 08/02/24 08:43 08/02/24 07:43 08/02/24 08:47
Lab Data
08/02/24 02:35
08/02/24 04:20
Microbiology
08/02/24 02:35 Nasal Swab Influenza Types A & B (SYLVIA) - Final
Negative for Influenza A & B, NAAT
Negative results must be combined with clinical observations
and patient history.
Nucleic Acid Amplification test (NAAT)performed on the
[employer] platform.
Diagnostic Testing:
Physical Exam
-
HEENT: Normocephalic and Anicteric
Cardiovascular: S1/S2, Peripheral Edema (+2 lower extremity pitting edema) and Other (V-paced)
Respiratory: Wheeze (negative), Rales (Bilateral), Rhonchi (Bilaterally upon expiration) and Non-Labored Respirations
GI: Soft, Non Distended, Non Tender, Normal Bowel Sounds and Other (G-tube)
Neurology: Awake, Alert, Tremors (negative) and Other (non-verbal)
Skin: Warm and Dry
General: Respiratory Distress (negative), Comfortable, Fever (negative) and Chills (negative)
Assessment
-
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
(placed 07/12/2017), history of CVA/ICH (2011), history of left posterior fossa meningioma, history of EMILIE, venous insufficiency, dyslipidemia, hypertension and aortic stenosis who presents with shortness of breath from home. Per EMS, patient was
receiving tube feeds through a PEG tube on their arrival, PEG tube feedings were stopped and patient vomited and then he desaturated to 84% on room air. Placed on the high flow at 10 L/min with saturations improving to 94%. Patient at baseline is
nonverbal. He was in his usual state of health up until this event happened. His connected his tube feedings at around 9:30 PM and then they went to bed, and the patient woke up his in the middle of the night complaining of shortness of
breath. According to the family, the patient has nausea/vomiting if he moves around too much after his tube feeds are started. Per family, he also has copious amounts of oral secretions/drooling/phlegm that he produces. In the ER he was febrile
to 103.1 �F, pulse rate 94, respiratory rate 30, BP 117/77, and saturating 99% on room air. Initial labs showed normal WBC at 7.9, Hb 14.6, platelet count 147, sodium 129, serum bicarbonate level 31, glucose 127, lactate 2, proBNP 10,900, troponin
negative at 0.016, and COVID-19 antigen negative. Blood cultures were collected x 2. CXR showed small bilateral pleural effusions with adjacent consolidative opacities/atelectasis (R >L). In the ER he was given 2.7 L total of NS 0.9%,
ceftriaxone, Zithromax, IV Tylenol and then started on Levophed as SBP was low in the 80�90s. He was initially admitted to the IMU. This morning, patient's Levophed requirements continue to rise and he was upgraded to the ICU. [employer] Dr[employer] service
now consulted for additional management/recommendations.
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
Impression:
#Septic shock due to aspiration pneumonia
#Elevated proBNP
#Thrombocytopenia likely due to sepsis
#Chronic hypochloremic, hyponatremia
#Metabolic alkalosis
#Chronic venous insufficiency with +2 lower extremity pitting edema
#History of CVA/ICH (2011)
#History of aortic stenosis/aortic regurgitation
Plan:
- Suspect patient aspirated on tube feeds while at home, which his administers
- Continue with supplemental oxygen and wean as tolerated � currently on 4 L/min nasal cannula saturating 90%
- Continue with vasopressors and wean as tolerated while maintaining MAP >65. Currently BP 137/61 on Levophed at 8 mcg/min
- Add vasopressin
- Continue to trend lactate until <2 mmol/L
- Continue with strict aspiration precautions, keeping HOB >30-45�
- Continue with broad-spectrum antibiotics with Zosyn; follow-up blood cultures x 2 collected today
- Check urine antigens for Legionella + strep pneumonia; check sputum culture if patient can produce a decent sample
- Given that patient has a normal WBC at 7.9 and he appears nontoxic, check procalcitonin as this could very well be a aspiration pneumonitis. If procalcitonin >0.5 then would continue antibiotics and give a total of 7 days
- Echo checked today showing normal biventricular size and function with moderate concentric LVH and normal regional wall motion; stage I diastolic dysfunction with moderate aortic stenosis with peak/mean gradients of 61/38 mmHg, respectively with
an MADELIN of 1.2 cm�. There was borderline pulmonary hypertension with PASP 31 mmHg
- Trend BNP
- Monitor volume status; of note he does have chronic venous insufficiency with chronic lower extremity pitting edema
- Maintain SpO2 >90-94% and wean down supplemental oxygen as tolerated
- prn nebulized bronchodilators - not currently bronchospastic
- Replete electrolytes with K>4, Mg>2
- Maintain euglycemia with goal BG 140-180
- Trend H/H and transfuse if needed to keep Hb>7g/dL; keep plt>20k, unless there is concern for bleeding then keep plt>50k
- DVT ppx: start LMWH
Continue ICU level care for this critically ill patient
Critical care statement: A total of 41 minutes of critical care time was provided for this patient today. This includes management of unstable vital signs, evaluation of the patient at bedside, reviewing the patient's pertinent medical records
including radiographs, microbiology, laboratory evaluations, and discussion with primary team, consultants, pharmacy, nutrition, physical therapy, case management, charge nurse, critical care nursing, and respiratory therapy.
Data:
CXR 08/02/2024: Small bilateral pleural effusions and adjacent atelectasis/consolidation, right greater than left.
[2024-08-02 14:52] LABS: Lactic Acid 7.7 mmol/L (0.7-2.0)
--- NOTE | 2024-08-02 15:01 | CARDSERVDEF ---
Echocardiogram with Definity completed after protocol screening completed. Allergies verified.
Patent IV site: _Left wrist IV site clear___
IV site flushed with 0.9% NaCl pre and post administration.
Diluted bolus method utilized to enhance visualization of ventricular fletcher.
Total volume given: _3___ mL
Patient tolerated all procedures well without complications.
[2024-08-02 15:03] LABS: Procalcitonin 8.35 ng/ml (0.0-0.25)
--- NOTE | 2024-08-02 16:08 | PTCARENOTE ---
Lactic results 7.7 MD aware, cont to trend Q4 per protocol. patient afebrile, awake and alert, engages in conversations with family. levo @ 6 mcg at present. attempting to titrate
[2024-08-02] MEDS: LOVENOX 40 MG SC (18:00)
[2024-08-02 18:49] LABS: Lactic Acid 16.3 mmol/L (0.7-2.0)
[2024-08-02 20:06] LABS: Venous Blood Gas B.E. 3.8 mmol/L (-4 to +4); Venous Blood Gas O2 Sat % 95.2 %; Venous Blood Gas pCO2 65 mmHg (35-48); Venous Blood Gas pO2 69 mmHg (30-50)
[2024-08-02 20:19] LABS: Lactic Acid 2.8 mmol/L (0.7-2.0)
--- NOTE | 2024-08-02 22:30 | PTCARENOTE ---
Received patient in bed on Levophed at 6 mcg/min. Levophed titrated to keep MAP>8, and is now at 8 mcg/min. Patient is awake and with garbled/aphagic speech. Follows simple commands. Plan of care for the shift reviewed with the patient. AV paced on
the monitor. SpO2 at 95 % on 4 l/o2 nc. Rhonchi/coarse breath sounds. Hypoactive BS. PAtient bladder scanned for 285 cc urine. Lactic acid and VBG drawn and sent. FEDERICO Miner updated. Patient turned and repositioned.
[2024-08-03] VITALS (57 sets, daily range): BP systolic 92–182; BP diastolic 51–100; PULSE 73–78; BMI 28.0
[2024-08-03] MEDS: ZOSYN 50 IV ×2 (00:06→05:24)
[2024-08-03] MEDS: LEVOPHED 250 IV (00:34)
[2024-08-03 00:38] LABS: Lactic Acid 1.8 mmol/L (0.7-2.0)
--- NOTE | 2024-08-03 00:38 | PTCARENOTE ---
Patient reassessed. Remains on Levophed at 6 mcg/min. A-V paced on the monitor. Labs drawn and sent. Patient turned and repositioned. All needs are met at this time. Call jennifer and Kimberly are within reach.
[2024-08-03 03:31] LABS: Venous Blood Gas B.E. 4.9 mmol/L (-4 to +4); Venous Blood Gas HCO3 30.4 mmol/L (22-27); Venous Blood Gas pCO2 48 mmHg (35-48); Venous Blood Gas pH 7.41 (7.32-7.43); Venous Blood Gas pO2 124 mmHg (30-50)
[2024-08-03 03:32] LABS: Venous Blood Gas O2 Therapy 4L/min
[2024-08-03 04:08] LABS: Hemoglobin 10.9 g/dL (13.0-18.0); Mean Corp Hgb Conc. 34.1 g/dL (33.0-37.0); Mean Corpuscular Hgb 34.3 pg (27.0-31.0); Mean Corpuscular Volume 100.6 fL (80.0-94.0); Mean Platelet Volume 10.8 fL (7.4-10.4); Platelet Count 120 10^3/uL (130-400); Red Blood Cell Count 3.18 10^6/uL (4.70-6.10); Red Cell Dist. Width 13.6 % (11.5-14.5); White Blood Cell Count 11.3 10^3/uL (4.8-10.8)
[2024-08-03 04:39] LABS: NT-proBNP 17400 pg/ml
[2024-08-03 04:47] LABS: ALT (SGPT) 13 U/L (0-50); AST (SGOT) 22 U/L (17-59); Albumin 2.5 g/dl (3.5-5.0); Alkaline Phosphatase 66 U/L (38-126); Blood Urea Nitrogen 33 mg/dl (9-20); Calcium 7.9 mg/dl (8.4-10.2); Carbon Dioxide 30 mmol/L (22-30); Chloride 94 mmol/L (98-107); Estimated Creatinine Clearance 69 ml/min; Glucose 104 mg/dl (70-99); Magnesium 1.9 mg/dl (1.6-2.3); Phosphorus 3.5 mg/dl (2.5-4.5); Potassium 3.4 mmol/L (3.5-5.1); Sodium 131 mmol/L (135-145); Total Bilirubin 3.2 mg/dl (0.2-1.3); eGFR > 60.00
[2024-08-03] MEDS: KCL 270 MEQ IV (06:20)
[2024-08-03] MEDS: DUONEB 3 ML INH ×2 (07:03→14:18)
--- NOTE | 2024-08-03 07:44 | PTCARENOTE ---
0500: Patient's labs resulted. Potassium of 3.4. Kristofer Jerez CRNP made aware. Krider 40 meq ordered.
0640: Patient complained of burning with potassium infusion. Site assessed. No infiltration noted. KCL decreased from 67.5 mls/hr to 30 mls/hr. Patient is tolerated well.
--- NOTE | 2024-08-03 08:15 | W.PN.INTV ---
Today's Communication / Plan
Recommendations
Aspiration precautions
Continue tube feeds
Change antibiotics from Zosyn to Unasyn and continue for total of 7 days
DuoNebs TID
Blood cultures collected on 08/02/2024 were positive with GPCs in chains--> follow-up species and sensitivities and continue with Unasyn for now
Surveillance blood cultures rechecked today; if blood cultures are persistent then would consult cardiology for LADONNA with ID consult
Trend leukocytosis
Trend H&H + platelet count
Patient has stable hypercapnia
Today in the afternoon he was on room air breathing comfortably and saturating 95-96%
Patient is stable for downgrade out of ICU to telemetry. No additional recommendations at this time. Marketing Strategy Manager/Pulmonary service will now sign off. Please reconsult if there are any additional questions/concerns, or if patient's respiratory
status deteriorates.
Assessment
-
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
(placed 07/12/2017), history of CVA/ICH (2011), history of left posterior fossa meningioma, history of EMILIE, venous insufficiency, dyslipidemia, hypertension and aortic stenosis who presents with shortness of breath from home. Per EMS, patient was
receiving tube feeds through a PEG tube on their arrival, PEG tube feedings were stopped and patient vomited and then he desaturated to 84% on room air. Placed on the high flow at 10 L/min with saturations improving to 94%. Patient at baseline is
nonverbal. He was in his usual state of health up until this event happened. His connected his tube feedings at around 9:30 PM and then they went to bed, and the patient woke up his in the middle of the night complaining of shortness of
breath. According to the family, the patient has nausea/vomiting if he moves around too much after his tube feeds are started. Per family, he also has copious amounts of oral secretions/drooling/phlegm that he produces. In the ER he was febrile
to 103.1 �F, pulse rate 94, respiratory rate 30, BP 117/77, and saturating 99% on room air. Initial labs showed normal WBC at 7.9, Hb 14.6, platelet count 147, sodium 129, serum bicarbonate level 31, glucose 127, lactate 2, proBNP 10,900, troponin
negative at 0.016, and COVID-19 antigen negative. Blood cultures were collected x 2. CXR showed small bilateral pleural effusions with adjacent consolidative opacities/atelectasis (R >L). In the ER he was given 2.7 L total of NS 0.9%,
ceftriaxone, Zithromax, IV Tylenol and then started on Levophed as SBP was low in the 80�90s. He was initially admitted to the IMU. This morning, patient's Levophed requirements continue to rise and he was upgraded to the ICU. Marketing Strategy Manager service
now consulted for additional management/recommendations.
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
Impression:
#Septic shock due to aspiration pneumonia - shock state now resolved
#Elevated proBNP
#Thrombocytopenia likely due to sepsis
#Chronic hypochloremic, hyponatremia
#Metabolic alkalosis
#Chronic venous insufficiency with +2 lower extremity pitting edema
#History of CVA/ICH (2011)
#History of aortic stenosis/aortic regurgitation
Plan:
- Suspect patient aspirated on tube feeds while at home, which his administers
- Continue with supplemental oxygen and wean as tolerated � currently on room air saturating 96%; yesterday he was on 4 L/min nasal cannula saturating 90%
- Maintain MAP >65
- Lactate 1.8 overnight � no longer need to continue trending
- Continue with strict aspiration precautions, keeping HOB >30-45�
- Continue with broad-spectrum antibiotics --> change from Zosyn to Unasyn; follow-up blood cultures x 2 collected on 08/02 which are growing GPCs and chains --> follow up species
- Urine antigens for Legionella + strep pneumonia both negative; follow up sputum culture (collected today)
- Procalcitonin level 8.35 point 08/02/2024 - would give a total of 7 days Abx
- Echo checked yesterday showing normal biventricular size and function with moderate concentric LVH and normal regional wall motion; stage I diastolic dysfunction with moderate aortic stenosis with peak/mean gradients of 61/38 mmHg, respectively
with an MADELIN of 1.2 cm�. There was borderline pulmonary hypertension with PASP 31 mmHg
- Trend BNP (worsening today)
- Monitor volume status; of note he does have chronic venous insufficiency with chronic lower extremity pitting edema
- Maintain SpO2 >90-94% and wean down supplemental oxygen as tolerated
- prn nebulized bronchodilators - not currently bronchospastic
- Continue DuoNebs TID
- Blood gas showed acute on chronic hypercapnia on 08/02/2024; unfortunately he is too high of an aspiration risk to start positive airway pressure; pH this morning was 7.41 hence hypercapnia is stable
- Replete electrolytes with K>4, Mg>2
- Maintain euglycemia with goal BG 140-180
- Trend H/H and transfuse if needed to keep Hb>7g/dL; keep plt>20k, unless there is concern for bleeding then keep plt>50k
- DVT ppx: start LMWH
Patient is stable for downgrade out of ICU to telemetry. No additional recommendations at this time. Marketing Strategy Manager/Pulmonary service will now sign off. Thank you for allowing us to be involved in the care of this patient. Please reconsult if there
are any additional questions/concerns, or if patient's respiratory status deteriorates.
Data:
CXR 08/02/2024: Small bilateral pleural effusions and adjacent atelectasis/consolidation, right greater than left.
Total time spent today was 56 minutes for this encounter. Time includes reviewing laboratory test/imaging results, reviewing pertinent medical records, obtaining and reviewing medical history, performing an appropriate exam, ordering medications,
tests and procedures. Time also includes documentation of this encounter, coordinating patient care and communicating with other healthcare professionals. Total time does not include separately billed tests performed on this date of service.
Subjective Dataa
Subjective Data
Date of Service:
Date of Service: August 03, 2024
Chief Complaint: Marketing Strategy Manager Follow Up
Subjective:
Patient seen and evaluated this morning. Resting in bed no acute distress. Levophed has been off since 815 this morning. Currently on 2 L/min, Spo2 94%, HR 79 and BP 163/71. Family members at bedside and all questions were answered. Patient
feeling well, denies chest pain, GONZALEZ, nausea, fevers or chills.
Review of Systems
General: Other (Negative unless mentioned above)
Objective Data
Data Reviewed
Vital Signs / I&O / Oxygen:
Vital Signs
Temp Pulse Resp BP Pulse Ox
98 F 61 15 118/61 99
08/03/24 03:23 08/03/24 07:30 08/03/24 07:30 08/03/24 07:30 08/03/24 09:17
Intake and Output
08/02/24 08/03/24 08/04/24
06:59 06:59 06:59
Intake Total 2572.5 / 2680.0 307.5 / 307.5
Output Total 550 / 550
Balance 2022.5 / 2130.0 307.5 / 307.5
SaO2 99
Nasal Cannula flow liters per 4
minute
Physical Exam
General: Respiratory Distress (negative), Comfortable, Chills (negative) and Sweats (negative)
HEENT: Normocephalic and Anicteric
Cardiovascular: S1-S2, Murmur (GRISEL heard across upper precordium, grade IV/) and Peripheral Edema (+2 lower extremity pitting edema)
Respiratory: Wheeze (negative), Crackles (Bibasilar), Rhonchi (negative), Non-Labored Respirations, Stridor (negative) and Other (Diminished breath sounds bilaterally)
GI: Soft, Non Distended, Non Tender and Normal Bowel Sounds
Neurology: Awake, Alert and Tremors (negative)
Skin: Warm, Dry, Cyanosis (negative) and Jaundice (negative)
Labs/Micro/Reports
Lab Data
08/03/24 03:27
08/03/24 03:27
Microbiology
08/02/24 02:40 Blood/Venous Blood Culture - Preliminary
Culture in progress
08/02/24 02:40 Blood/Venous Gram Stain - Preliminary
08/02/24 17:52 Urine Legionella Urinary Antigen - Final
Negative for Legionella pneumophila Serogroup 1 antigen.
A negative result does not rule out the possiblity of
Legionella infection due to other serogroups or species of
Legionella. Clinical correlation is recommended.
08/02/24 17:52 Urine Streptococcus pneumoniae Antigen (M - Final
Negative for Streptococcus pneumoniae antigen.
A negative result does not exclude infection with
Streptococcus pneumoniae. Clinical correlation is
recommended.
08/02/24 02:40 Blood/Venous Blood Culture - Preliminary
Positive culture in progress
08/02/24 02:40 Blood/Venous Gram Stain - Preliminary
08/02/24 02:35 Nasal Swab Influenza Types A & B (SYLVIA) - Final
Negative for Influenza A & B, NAAT
Negative results must be combined with clinical observations
and patient history.
Nucleic Acid Amplification test (NAAT)performed on the
[employer] platform.
[2024-08-03] MEDS: PROTONIX IV 40 MG IV (08:21)
[2024-08-03] MEDS: PLAVIX 75 MG TUBE (08:21)
--- NOTE | 2024-08-03 08:25 | W.PN.HOSP.TC ---
Today's Communication/Plan
-
stop IVF
restart tube feeds
repeat blood cultures until clear
PT/OT
off pressors currently
if does well...downgrade later today?
Assessment / Plan
Assessment / Plan
pt is an 88 year old male
Septic Shock with Acute Hypoxemic Respiratory Failure secondary presumed aspiration RLL PNA--cont zosyn--follow cultures--apprec call person--stop IVF--restart tube feeds--COVID / Flu negative--off pressors currently--anerobic blood culture
positive for gm positive cocci in chains--repeat until clear--urine legionella and strep ag are both negative
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
8AM per son-- will order PT/OT
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
Aortic Stenosis/Chronic Edema--- echo with preserved EF 50% with diastolic dysfunction, moderate aortic stenosis
hypokalemia--replete
Essential Hypertension--all meds on hold
DVT Proph--Subcut heparin
Code Status-- Full code--reconfirmed with son at bedside (he stated that that is what he wants...)
Total Critical Care Time 31 minutes. I was immediately available to the patient and staff. I personally examined, reviewed labs, diagnostic images/reports, interpretations, treatment plans, discussed patient care with other providers and family
or caregivers (if patient is unable to make decisions), entered orders as appropriate and documented the medical record.
Anticipated Discharge: > 48 hours
Subjective/Interval History
-
Date of Service: August 03, 2024
pt awake--speech garbled
Objective Data
-
Labs:
Laboratory Results
08/03/24
03:27
WBC 11.3 H
Hgb 10.9 L D
Hct 32.0 L
Plt Count 120 L
Sodium 131 L
Potassium 3.4 L
Chloride 94 L
Carbon Dioxide 30
BUN 33 H
Creatinine 0.8
Glucose 104 H
Calcium 7.9 L
Total Bilirubin 3.2 H
AST 22
ALT 13
Alkaline Phosphatase 66
Vital Signs:
max temp for 24 hours
08/02/24
11:40
Temp 98.6 F
Vital Signs
Temp Pulse Resp BP Pulse Ox
98 F 61 15 118/61 95
08/03/24 03:23 08/03/24 07:30 08/03/24 07:30 08/03/24 07:30 08/03/24 07:05
I&O
08/02/24 08/03/24 08/04/24
06:59 06:59 06:59
Intake Total 2572.5 / 2572.5
Output Total 550 / 550
Balance 2021.5 / 2021.
Review of Systems
-
All other systems: Reviewed and negative
Physical Exam
-
General: Appears Chronically Ill (frail)
HEENT: Normocephalic, Atraumatic and Oxygen
Respiratory: Decreased Breath Sounds (limited exam)
Cardiac: Regular Rhythm, S1/S2 and Murmur (harsh 4/6 GRISEL)
GI: Soft, Nontender, Nondistended, Normal Bowel Sounds and Peg Tube
Musculoskeletal: No Clubbing and No Cyanosis; Negative No Edema (2+ LE edema bilaterally)
Neuro: Awake, Alert and Other (right sided hemiparesis/hemiplegia)
Psych: Calm
--- NOTE | 2024-08-03 09:00 | PTCARENOTE ---
Received pt sleeping.Awakens to voice.Right upper ext contracted at the elbow.+4-5/5 movement left upper and lower extremity.Speech is garbled but appropriate.PT/OT consulted by .V paced/AV paced noted.IVF discontinued as ordered.K rider
infusing.O@ 2l NC.POC 94%Coarse breath sounds,left scattered crackles,decreased breath sounds bibasilar.Occasional non productive cough.PEG intact.No BM.Voiding via condom cath.Skin as documented.Plan of care discussed with pt.
[2024-08-03] MEDS: LR IV (09:10)
--- NOTE | 2024-08-03 11:01 | PTCARENOTE ---
Blood cultures sent.Pt expectorated moderate amount thick blood tinged sputum.Sputum culture sent as ordered.
--- NOTE | 2024-08-03 11:56 | PTCARENOTE ---
Pt assessed.No change in assessment.PEG tube care given.Dressing changed.Nocturnal feeding ordered.Pt assisted OOB by OT/PT with walker.
[2024-08-03] MEDS: DUONEB INH ×2 (12:21→19:19)
[2024-08-03] MEDS: ZOSYN IV (12:42)
[2024-08-03] MEDS: UNASYN IV ×2 (13:28→23:59)
--- NOTE | 2024-08-03 15:07 | CM ---
CM following re: discharge planning.
Reviewed pt's chart, met with pt. pt's son Oscar and pt's spouse at bedside.
Per son, pt lives with spouse 2SH, [facility] to [facility], current with [facility] [phone] and received 16 hours of caregiver services 3 days per week provided by [facility]. Per son, peg tube supplier is [facility]. Per son, peg tube needs
to be replaced after each year and he asked whether or not it can be done here. Both MD and RN are aware.
PT and OT evaluations noted - SNF vs home PT/OT recommended. CM discussed it with the pt and his family and they requested pt returns back home with [facility], resumptions of [facility], resumptions of caregiver services and family
support.
A referral to [facility] made.
D/C plan: home with [facility], resumptions of [facility], resumptions of caregiver services and family support.
CM will follow with discharge plan updates as hospitalization progresses
--- NOTE | 2024-08-03 16:05 | PTCARENOTE ---
Pt assessed.No change in assessment noted.Pt assisted back to bed with 2 person moderate assist.Pt oob x 4 hours.Pt's and son at bedside.Plan of care discussed.Tele orders as per MD.Pt for room 414-2.Pt and family made aware.
--- NOTE | 2024-08-03 18:21 | PTCARENOTE ---
Report given to 4 Acute RN.
[2024-08-03] MEDS: LOVENOX 40 MG SC (18:25)
[2024-08-03] MEDS: LIPITOR 20 MG TUBE (18:25)
--- NOTE | 2024-08-03 19:30 | TRANSFER ---
Pt. transferred from ICU, AAO x 3, vs stable, garbled speech from previous stroke, started Jevity tube feeding, call rodriguez within reach.
[2024-08-03] MEDS: PEPCID 40 MG TUBE (23:24)
[2024-08-04] MEDS: FLUSH (NSS) 1 FLUSH IV
[2024-08-04 03:00] VITALS: BP 147/91
[2024-08-04] MEDS: UNASYN IV ×3 (05:20→18:06)
[2024-08-04] MEDS: FLUSH (NSS) 2 FLUSH IV (05:20)
[2024-08-04 05:52] VITALS: BMI 28.1
[2024-08-04 06:19] LABS: Hematocrit 31.1 % (39.0-52.0); Hemoglobin 10.8 g/dL (13.0-18.0); Mean Corp Hgb Conc. 34.7 g/dL (33.0-37.0); Mean Corpuscular Hgb 34.8 pg (27.0-31.0); Mean Corpuscular Volume 100.3 fL (80.0-94.0); Mean Platelet Volume 11.7 fL (7.4-10.4); Platelet Count 99 10^3/uL (130-400); Red Cell Dist. Width 13.5 % (11.5-14.5)
[2024-08-04 06:34] LABS: ALT (SGPT) 14 U/L (0-50); AST (SGOT) 29 U/L (17-59); Albumin 2.6 g/dl (3.5-5.0); Alkaline Phosphatase 71 U/L (38-126); Blood Urea Nitrogen 26 mg/dl (9-20); Calcium 7.9 mg/dl (8.4-10.2); Carbon Dioxide 30 mmol/L (22-30); Chloride 100 mmol/L (98-107); Estimated Creatinine Clearance 79 ml/min; Glucose 120 mg/dl (70-99); Magnesium 2.1 mg/dl (1.6-2.3); Potassium 3.9 mmol/L (3.5-5.1); Sodium 133 mmol/L (135-145); Total Bilirubin 2.5 mg/dl (0.2-1.3); Total Protein 5.2 g/dl (6.3-8.2); eGFR > 60.00
[2024-08-04 08:05] VITALS: BP 168/98
[2024-08-04] MEDS: DUONEB 3 ML INH ×3 (08:47→19:49)
[2024-08-04] MEDS: KCL ELIXIR 20 MEQ TUBE (09:34)
[2024-08-04] MEDS: PLAVIX 75 MG TUBE (09:35)
[2024-08-04] MEDS: VITAMIN D3 (cholecalciferol) 25 MCG TUBE (09:35)
[2024-08-04] MEDS: LASIX 20 MG PO (09:35)
[2024-08-04] MEDS: VITAMIN C 500 MG TUBE (09:35)
[2024-08-04] MEDS: PEPCID 40 MG TUBE ×2 (09:35→19:58)
[2024-08-04] MEDS: COZAAR 100 MG TUBE (09:36)
[2024-08-04] MEDS: DESENEX/MITRAZOL/ZEASORB 1 APPLIC TOPICAL ×2 (09:40→19:58)
[2024-08-04 11:18] VITALS: BP 147/98
--- NOTE | 2024-08-04 14:28 | W.PN.HOSP.TC ---
Today's Communication/Plan
-
cont IV abx
repeat blood cultures until clear
Assessment / Plan
Assessment / Plan
pt is an 88 year old male
Septic Shock with Acute Hypoxemic Respiratory Failure secondary presumed aspiration RLL PNA--cont zosyn--follow cultures--apprec shaper hand--stop IVF--restart tube feeds--COVID/Flu negative---strep species bacteremia--repeat until clear, consider
ID consult but likely from PNA--urine legionella and strep ag are both negative
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
8AM per son-- will order PT/OT
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
Aortic Stenosis/Chronic Edema--- echo with preserved EF 50% with diastolic dysfunction, moderate aortic stenosis
hypokalemia--replete
Essential Hypertension--all meds on hold
DVT Proph--Subcut heparin
Code Status-- Full code--reconfirmed with son at bedside (he stated that that is what he wants...)
Anticipated Discharge: > 48 hours
Subjective/Interval History
-
Date of Service: August 04, 2024
pt getting neb treatment
Objective Data
-
Labs:
Laboratory Results
08/04/24
04:39
WBC 6.0
Hgb 10.8 L
Hct 31.1 L
Plt Count 99 L
Sodium 133 L
Potassium 3.9
Chloride 100
Carbon Dioxide 30
BUN 26 H
Creatinine 0.7
Glucose 120 H
Calcium 7.9 L
Total Bilirubin 2.5 H
AST 29
ALT 14
Alkaline Phosphatase 71
Vital Signs:
max temp for 24 hours
08/04/24
11:18
Temp 98.5 F
Vital Signs
Temp Pulse Resp BP Pulse Ox
98.5 F 83 16 147/98 95
08/04/24 11:18 08/04/24 14:05 08/04/24 14:05 08/04/24 11:18 08/04/24 14:05
I&O
08/03/24 08/04/24 08/05/24
06:59 06:59 06:59
Intake Total 2572.5 / 2680.0 1482.5 / 1482.5 120 / 120
Output Total 550 / 550 700 / 700
Balance 2022.5 / 2130.0 782.5 / 782.5 120 / 120
Review of Systems
-
All other systems: Reviewed and negative
Physical Exam
-
General: Appears Chronically Ill
HEENT: Normocephalic and Atraumatic
Respiratory: Clear to Auscultation; Negative Wheezes or Rhonchi
Cardiac: Regular Rhythm and S1/S2; Negative Murmur
GI: Soft, Nontender, Nondistended, Normal Bowel Sounds and Peg Tube (with abdominal wall hernia)
Musculoskeletal: No Clubbing and No Cyanosis; Negative No Edema
Neuro: Awake and Alert
[2024-08-04 15:49] VITALS: BP 146/95
[2024-08-04] MEDS: LOVENOX 40 MG SC (18:05)
[2024-08-04] MEDS: LIPITOR 20 MG TUBE (18:05)
[2024-08-04 19:30] VITALS: BP 144/84
[2024-08-04 23:00] VITALS: BP 152/87
[2024-08-05] MEDS: UNASYN IV ×4 (01:27→17:47)
[2024-08-05 03:30] VITALS: BP 151/87
[2024-08-05] MEDS: FLUSH (NSS) 2 FLUSH IV (05:37)
[2024-08-05 06:00] VITALS: BMI 28.1
[2024-08-05 06:06] LABS: Hematocrit 32.7 % (39.0-52.0); Hemoglobin 11.2 g/dL (13.0-18.0); Mean Corp Hgb Conc. 34.3 g/dL (33.0-37.0); Mean Corpuscular Hgb 34.4 pg (27.0-31.0); Mean Corpuscular Volume 100.3 fL (80.0-94.0); Mean Platelet Volume 10.9 fL (7.4-10.4); Platelet Count 108 10^3/uL (130-400); Red Blood Cell Count 3.26 10^6/uL (4.70-6.10); Red Cell Dist. Width 13.7 % (11.5-14.5); White Blood Cell Count 4.7 10^3/uL (4.8-10.8)
[2024-08-05 06:24] LABS: Blood Urea Nitrogen 24 mg/dl (9-20); Calcium 7.9 mg/dl (8.4-10.2); Carbon Dioxide 35 mmol/L (22-30); Chloride 100 mmol/L (98-107); Estimated Creatinine Clearance 92 ml/min; Glucose 134 mg/dl (70-99); Magnesium 1.9 mg/dl (1.6-2.3); Sodium 136 mmol/L (135-145); eGFR > 60.00
[2024-08-05] MEDS: DUONEB 3 ML INH ×3 (07:01→19:13)
[2024-08-05 07:34] VITALS: BP 165/107
[2024-08-05] MEDS: KCL ELIXIR 20 MEQ TUBE (09:56)
[2024-08-05] MEDS: LASIX 20 MG TUBE (09:56)
[2024-08-05] MEDS: PEPCID 40 MG TUBE ×2 (09:56→20:55)
[2024-08-05] MEDS: PLAVIX 75 MG TUBE (09:56)
[2024-08-05] MEDS: VITAMIN C 500 MG TUBE (09:56)
[2024-08-05] MEDS: COZAAR 100 MG TUBE (09:57)
[2024-08-05] MEDS: DESENEX/MITRAZOL/ZEASORB 1 APPLIC TOPICAL ×2 (09:57→20:58)
[2024-08-05 11:00] VITALS: BP 148/80
[2024-08-05 15:00] VITALS: BP 140/76
--- NOTE | 2024-08-05 15:59 | W.PN.HOSP.TC ---
Today's Communication/Plan
-
await ID consult--can see Tuesday
cont zosyn
PT/OT
d/c planning
Assessment / Plan
Assessment / Plan
pt is an 88 year old male
Septic Shock with Acute Hypoxemic Respiratory Failure secondary presumed aspiration RLL PNA--blood cultures positive for strep oralis/mitis, repeat neg, ECHO without vegetations--consult ID--cont zosyn--follow cultures--apprec
airfield engineer officer/pulmonary--stop IVF--restarted tube feeds--COVID/Flu negative--urine legionella and strep ag are both negative
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
8AM per son-- will order PT/OT
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
Aortic Stenosis/Chronic Edema--- echo with preserved EF 50% with diastolic dysfunction, moderate aortic stenosis no vegetations
hypokalemia--replete
Essential Hypertension--restart meds
DVT Proph--Subcut heparin
Code Status-- Full code--reconfirmed with son at bedside (he stated that that is what he wants...)
Anticipated Discharge: 24 - 48 hours
Subjective/Interval History
-
Date of Service: August 05, 2024
pt getting breathing treatment again
Objective Data
-
Labs:
Laboratory Results
08/05/24
05:50
WBC 4.7 L
Hgb 11.2 L
Hct 32.7 L
Plt Count 108 L
Sodium 136
Potassium 4.0
Chloride 100
Carbon Dioxide 35 H
BUN 24 H
Creatinine 0.6 L
Glucose 134 H
Calcium 7.9 L
Vital Signs:
max temp for 24 hours
08/05/24
07:34
Temp 98.9 F
Vital Signs
Temp Pulse Resp BP Pulse Ox
98.7 F 92 16 148/80 93
08/05/24 11:00 08/05/24 14:19 08/05/24 14:19 08/05/24 11:00 08/05/24 14:19
I&O
08/04/24 08/05/24 08/06/24
06:59 06:59 06:59
Intake Total 1482.5 / 1482.5 1395 / 1395
Output Total 700 / 700
Balance 782.5 / 782.5 1395 / 1395
Review of Systems
-
All other systems: Reviewed and negative
Abdomen/GI: Reports Other (family states that the abdominal wall hernia has gotten worse....)
Physical Exam
-
General: Appears Chronically Ill
HEENT: Normocephalic and Atraumatic; Negative Oxygen
Respiratory: Decreased Breath Sounds
Cardiac: Regular Rhythm and S1/S2; Negative Murmur
GI: Soft, Nontender, Nondistended, Normal Bowel Sounds, Peg Tube and Other (abdominal wall hernia)
Musculoskeletal: No Clubbing and No Cyanosis; Negative No Edema (2+ LE edema bilaterally--right UE swelling/edema)
Neuro: Awake and Alert
[2024-08-05] MEDS: LOVENOX 40 MG SC (17:46)
[2024-08-05] MEDS: LIPITOR 20 MG TUBE (17:46)
[2024-08-05 20:22] VITALS: BP 154/101
[2024-08-05] MEDS: LOPRESSOR 75 MG TUBE (20:55)
[2024-08-05 23:34] VITALS: BP 169/109
[2024-08-06] VITALS (8 sets, daily range): BP systolic 129–172; BP diastolic 75–105; PULSE 79; O2SAT 92; BMI 27.8
[2024-08-06] MEDS: UNASYN IV ×5 (00:20→23:44)
[2024-08-06] MEDS: DUONEB 3 ML INH ×3 (07:57→19:43)
[2024-08-06] MEDS: DESENEX/MITRAZOL/ZEASORB 1 APPLIC TOPICAL ×2 (08:31→20:19)
[2024-08-06] MEDS: KCL ELIXIR 20 MEQ TUBE (08:32)
[2024-08-06] MEDS: COZAAR 100 MG TUBE (08:32)
[2024-08-06] MEDS: LOPRESSOR 75 MG TUBE ×2 (08:33→20:03)
[2024-08-06] MEDS: LASIX 20 MG TUBE (08:33)
[2024-08-06] MEDS: VITAMIN C 500 MG TUBE (08:33)
[2024-08-06] MEDS: PLAVIX 75 MG TUBE (08:33)
[2024-08-06] MEDS: VITAMIN D3 (cholecalciferol) 25 MCG TUBE (08:33)
[2024-08-06] MEDS: PEPCID 40 MG TUBE ×2 (08:33→20:03)
[2024-08-06 09:59] LABS: Hematocrit 36.5 % (39.0-52.0); Hemoglobin 12.3 g/dL (13.0-18.0); Mean Corp Hgb Conc. 33.7 g/dL (33.0-37.0); Mean Corpuscular Hgb 34.5 pg (27.0-31.0); Mean Corpuscular Volume 102.2 fL (80.0-94.0); Mean Platelet Volume 10.7 fL (7.4-10.4); Platelet Count 120 10^3/uL (130-400); Red Blood Cell Count 3.57 10^6/uL (4.70-6.10); Red Cell Dist. Width 13.8 % (11.5-14.5); White Blood Cell Count 5.4 10^3/uL (4.8-10.8)
--- NOTE | 2024-08-06 10:45 | W.PN.HOSP.TC ---
Today's Communication/Plan
-
IV Unasyn
F/U final sensitivities and ID recs on antibiotics
Assessment / Plan
Assessment / Plan
pt is an 88 year old male with hx CVA with residual right hemiparesis/dysarthria on TF presents to the ER with SOB. He was febrile to 103 on arrival, found to be in septic shock requiring pressors and admission to ICU.
CXR 08/02/24
IMPRESSION: Small bilateral pleural effusions and adjacent atelectasis/consolidation, right greater than left.
Septic Shock with Acute Hypoxemic Respiratory Failure secondary presumed aspiration RLL PNA
-COVID/Flu negative--urine legionella and strep ag are both negative
-blood cultures positive for strep oralis/mitis
-ECHO without vegetations
-F/U ID recs
-cont Unasyn
-restarted tube feeds
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
-restarted tube feeds,-uses Jevity 1.5 90ml/hr from 9PM to 8AM per son--
-baseline, pt uses walker to get to bathroom-- primary caregiver at home-
-PT/OT
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
Aortic Stenosis/Chronic Edema--- echo with preserved EF 50% with diastolic dysfunction, moderate aortic stenosis no vegetations
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
hypokalemia--replete
Essential Hypertension--restart meds
DVT Proph--Subcut heparin
Code Status-- Full code--reconfirmed with son at bedside (he stated that that is what he wants...)
Anticipated Discharge: 24 - 48 hours
Subjective/Interval History
-
Date of Service: August 06, 2024
no new complaints
Objective Data
-
Labs:
Laboratory Results
03/17/25 03/17/25
09:33 09:34
WBC 5.4
Hgb 12.3 L
Hct 36.5 L
Plt Count 120 L
Sodium Pending
Potassium Pending
Chloride Pending
Carbon Dioxide Pending
BUN Pending
Creatinine Pending
Glucose Pending
Calcium Pending
Vital Signs:
Vital Signs
Temp Pulse Resp BP Pulse Ox
97.6 F 88 16 160/105 93
08/06/24 07:34 08/06/24 07:57 08/06/24 07:57 08/06/24 07:34 08/06/24 08:35
I&O
08/05/24 08/06/24 08/07/24
06:59 06:59 06:59
Intake Total 1395 / 1395 0 / 0 900 / 900
Balance 1395 / 1395 0 / 0 900 / 900
Review of Systems
-
History Source: Patient
All other systems: Reviewed and negative
Physical Exam
-
General: Appears Chronically Ill
HEENT: Normocephalic and Atraumatic; Negative Oxygen
Respiratory: Decreased Breath Sounds
Cardiac: Regular Rhythm and S1/S2; Negative Murmur
GI: Soft, Nontender, Nondistended, Normal Bowel Sounds, Peg Tube and Other (abdominal wall hernia)
Musculoskeletal: No Clubbing and No Cyanosis; Negative No Edema (2+ LE edema bilaterally--right UE swelling/edema)
Neuro: Awake and Alert
Data Reviewed
-
Diagnostic Radiology: Report Reviewed by me
Labs: Labs Reviewed by me
[2024-08-06 10:48] LABS: Blood Urea Nitrogen 25 mg/dl (9-20); Carbon Dioxide 34 mmol/L (22-30); Chloride 99 mmol/L (98-107); Estimated Creatinine Clearance 79 ml/min; Glucose 117 mg/dl (70-99); Potassium 4.2 mmol/L (3.5-5.1); Sodium 136 mmol/L (135-145); eGFR > 60.00
--- NOTE | 2024-08-06 13:13 | CM ---
Chart reviewed for d/c planning. Therapy recommends skilled rehab at d/c. Per chart, patient and family are requesting d/c home with [facility], resumptions of [facility], resumptions of caregiver services and family support.
Cont. IV Unasyn
Restarted tube feeds
Plan: Home with [facility], resumptions of [facility], resumptions of caregiver services and family support.
--- NOTE | 2024-08-06 16:23 | CON.ID ---
Consultation
-
Date/Time Consultation Requested: 08/05/2024 1406
Date/Time Consultation Performed: 08/06/2024 1615
Requesting Provider: Dr. Alvarez
Performing Provider: Dr. Welsh
Reason for Consultation: Bacteremia
Chief Complaint / Past History
History of Present Illness
Alberto Newton is an 88-year-old man being evaluated at the request of Dr. Alvarez in regards to bacteremia. History is obtained from chart review, along with patient interview although patient was found to be able to only provide very limited
history secondary to underlying aphasia.
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 He presented to the emergency room. [facility] on 08/02 via EMS. According to reviewed history the patient was in his usual state of
health until approximately 24 hours prior to admission. The patient receives tube feedings, which his connected to in the evening. The patient woke up in the [facility] complaining of shortness of breath, and 911 was called. The patient
evidently had a episode of nausea and vomiting prior to being brought in. In the ER he was found to be 103 degrees. Blood cultures obtained at the time of presentation are now positive for strep mitis, and Infectious Diseases is asked to comment
upon further antibiotic management.
At this time, the patient admits to cough, but denies pain. He denies current shortness of breath.
Past History
Additional Past Medical History:
CVA with right residual
GERD
HTN
Dyslipidemia
Valvular disease
Dysphagia
Additional Past Surgical History:
PPM placement
Right hip replacement
Right hand surgery
Hernia repair x 2
PEG tube
Allergy History:
lisinopril Allergy (Verified 01/02/24 11:13)
Tongue Swelling
Udvvhth-DNI-ZlK Reductase Inhibitor [Vveundj-Xma-Rtf Reductase Inhibitor] Allergy (Verified 01/02/24 11:13)
jaundice
Medications Reviewed: Yes
Current Antibiotics:
Unasyn 3 g IV every 6 hours
Social History
Tobacco: Former Smoker
Alcohol: None
Drug: None
Personal:
Living: With Family
Employment: Retired
Family History
Family History: Not Pertinent
Review of Systems
Vital Signs
Temp Pulse Resp BP Pulse Ox
97.4 F 64 18 155/83 100
08/06/24 15:47 08/06/24 15:47 08/06/24 15:47 08/06/24 15:47 08/06/24 15:47
Physical Exam
Physical Exam
Constitutional: Comfortable, Chronically Ill and Non-toxic
Eyes: No Conjunctival Hemorrhage and Sclera Anicteric
Oral: No Thrush and No Ulcers
Cardiovascular: S1/S2; Negative S3/S4
Pulmonary: Coarse and Non Labored; Negative Wheezes or Rales
Gastrointestinal: Soft, Non Tender, Non Distended, Normal Bowel Sounds and Other (PEG tube in place. Ventral hernia.)
Genito-Urinary: Negative Fry
Extremities: Edema and Venous Insufficiency (Bilateral lower extremities); Negative Erythema or Splinter Hemorrhage
Neurological: Awake and Alert
Psychological: Calm
Lab / Diagnostic Study Results
08/06/24 09:34
08/06/24 09:33
Abs Immat Gran (auto) 0.0 10^3/uL (0-0.05) 08/02/24 02:35
Absolute Neuts (auto) 7.2 10^3/uL (1.4-6.5) H 08/02/24 02:35
Absolute Lymphs (auto) 0.3 10^3/uL (1.2-3.4) L 08/02/24 02:35
Absolute Monos (auto) 0.3 10^3/uL (0.1-0.6) 08/02/24 02:35
Absolute Basos (auto) 0.0 10^3/uL (0-0.2) 08/02/24 02:35
Immature Gran % 0.4 % (0-0.5) 08/02/24 02:35
Neutrophils % 91.4 % (42.2-75.2) H 08/02/24 02:35
Lymphocytes % 3.9 % (20.5-51.1) L 08/02/24 02:35
Monocytes % 3.8 % (1.7-9.3) 08/02/24 02:35
Eosinophils % 0.1 % (0-6) 08/02/24 02:35
Basophils % 0.4 % (0-2) 08/02/24 02:35
Lactic Acid Cancelled 08/03/24 06:00
Procalcitonin 8.35 ng/ml (0.0-0.25) H* 08/02/24 13:58
Microbiology Results
Micro:
08/03/24 10:56 Blood Culture - Preliminary
Blood/Venous No Growth in 72 hours- Final report to follow
08/02/24 02:40 Blood Culture - Preliminary
Blood/Venous Strep mitis/oralis
Gram Stain - Preliminary
08/02/24 02:40 Blood Culture - Preliminary
Blood/Venous Strep mitis/oralis
Gram Stain - Preliminary
08/03/24 10:56 Respiratory Culture - Final
Sputum NO GROWTH
Gram Stain - Final
08/02/24 17:52 Legionella Urinary Antigen - Final
Urine Negative for Legionella pneumophila Serogroup 1 antigen.
A negative result does not rule out the possiblity of
Legionella infection due to other serogroups or species of
Legionella. Clinical correlation is recommended.
Streptococcus pneumoniae Antigen (M - Final
Negative for Streptococcus pneumoniae antigen.
A negative result does not exclude infection with
Streptococcus pneumoniae. Clinical correlation is
recommended.
08/02/24 02:35 Influenza Types A & B (SYLVIA) - Final
Nasal Swab Negative for Influenza A & B, NAAT
Negative results must be combined with clinical observations
and patient history.
Nucleic Acid Amplification test (NAAT)performed on the
[employer] NOW platform.
Imaging:
08/02/2024 CXR (portable): Small bilateral effusions and adjacent atelectasis versus consolidation noted. Please see full dictation for additional detail. Film personally viewed.
Assessment / Plan
Bacteremia with strep mitis
Suspected aspiration pneumonia
Fever
Leukocytosis; improved
Lower extremity venous insufficiency
CVA with right residual
GERD
HTN
Dyslipidemia
Valvular disease
Dysphagia
Recommendations:
Etiology of strep bacteremia not clear, although given its temporal relationship to the vomiting episode, may have been due to to aspiration.
Patient is currently on day 5 of antibiotic therapy, and overall appears improved.
At the time of discharge, would transition to Augmentin, which can be given via tube feeds, to complete a 14-day course of therapy.
Strict aspiration precautions.
Would recommend Tubigrip's to the bilateral lower extremities for noted venous insufficiency.
[2024-08-06] MEDS: LOVENOX 40 MG SC (17:29)
[2024-08-06] MEDS: LIPITOR 20 MG TUBE (17:29)
[2024-08-07 06:00] VITALS: BMI 27.5
[2024-08-07] MEDS: UNASYN IV ×2 (06:05→11:40)
[2024-08-07 07:54] VITALS: BP 144/74
[2024-08-07] MEDS: DUONEB 3 ML INH ×2 (08:00→14:33)
[2024-08-07] MEDS: KCL ELIXIR 20 MEQ TUBE (08:19)
[2024-08-07] MEDS: COZAAR 100 MG TUBE (08:20)
[2024-08-07] MEDS: DESENEX/MITRAZOL/ZEASORB 1 APPLIC TOPICAL (08:20)
[2024-08-07] MEDS: LASIX 20 MG TUBE (08:21)
[2024-08-07] MEDS: LOPRESSOR 75 MG TUBE (08:21)
[2024-08-07] MEDS: PEPCID 40 MG TUBE (08:22)
[2024-08-07] MEDS: VITAMIN C 500 MG TUBE (08:23)
[2024-08-07] MEDS: PLAVIX 75 MG TUBE (08:23)
--- NOTE | 2024-08-07 11:38 | W.PN.HOSP.TC ---
Addendum entered and electronically signed by Nelli Marin MD 08/09/24 10:24:
Stage 1 left ear pressure injury
-appreciate wound care
Original Note:
Today's Communication/Plan
-
OK for DC home today
Assessment / Plan
Assessment / Plan
pt is an 88 year old male with hx CVA with residual right hemiparesis/dysarthria on TF presents to the ER with SOB. He was febrile to 103 on arrival, found to be in septic shock requiring pressors and admission to ICU.
CXR 08/02/24
IMPRESSION: Small bilateral pleural effusions and adjacent atelectasis/consolidation, right greater than left.
Septic Shock with Acute Hypoxemic Respiratory Failure secondary presumed aspiration RLL PNA
-COVID/Flu negative--urine legionella and strep ag are both negative
-blood cultures positive for strep oralis/mitis
-ECHO without vegetations
-F/U ID recs
-s/p IV Unasyn --> transition to liquid Augmentin via tube; day 6/14 day abx
-restarted tube feeds
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
-restarted tube feeds,-uses Jevity 1.5 90ml/hr from 9PM to 8AM per son--
-baseline, pt uses walker to get to bathroom-- primary caregiver at home-
-PT/OT
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
Aortic Stenosis/Chronic Edema--- echo with preserved EF 50% with diastolic dysfunction, moderate aortic stenosis no vegetations
-RIG HAND Lasix resumed
hypokalemia--replete
Essential Hypertension--restart meds
DVT Proph--Subcut heparin
Code Status-- Full code--reconfirmed with son at bedside (he stated that that is what he wants...)
Anticipated Discharge: Today
Subjective/Interval History
-
Date of Service: August 07, 2024
awoken from sleep
no new complaints
Objective Data
-
Vital Signs:
Vital Signs
Temp Pulse Resp BP Pulse Ox
98.3 F 79 16 144/74 95
08/07/24 07:54 08/07/24 08:02 08/07/24 08:02 08/07/24 07:54 08/07/24 08:25
I&O
08/06/24 08/07/24 08/08/24
06:59 06:59 06:59
Intake Total 0 / 0 2520 / 2520
Output Total 1525 / 1525
Balance 0 / 0 995 / 995
Review of Systems
-
History Source: Patient
All other systems: Reviewed and negative
Physical Exam
-
General: Appears Chronically Ill
HEENT: Normocephalic and Atraumatic; Negative Oxygen
Respiratory: Decreased Breath Sounds
Cardiac: Regular Rhythm and S1/S2; Negative Murmur
GI: Soft, Nontender, Nondistended, Normal Bowel Sounds, Peg Tube and Other (abdominal wall hernia)
Musculoskeletal: No Clubbing and No Cyanosis; Negative No Edema (2+ LE edema bilaterally--right UE swelling/edema)
Neuro: Awake and Alert
Psych: Calm
Data Reviewed
-
Diagnostic Radiology: Report Reviewed by me
Labs: Labs Reviewed by me
--- NOTE | 2024-08-07 13:06 | CON.GI ---
Consultation
-
Date/Time Consultation Performed: 08/07/24
Performing Provider: Anand Humphries MD
Reason for Consultation: PEG malfunction
Medical History
Chief Complaint / HPI
History of Present Illness:
The patient is an 88-year-old male with past medical history as noted admitted on the with respiratory failure. He has been doing much better from that standpoint after being treated for septic shock from aspiration and right lower lobe
pneumonia. We are consulted for PEG malfunction. He has had a history of PEG tube since his CVA in 2018, last changed to a balloon replacement PEG tube in the ER last year confirmed on tube check in the stomach. He currently denies any abdominal
pain has been feeling better from a GI standpoint. Was tolerating tube feeds previously without any difficulty.
Past Medical History
Past Medical History: Other (Hypertension, history of CVA, history of EMILIE, aortic stenosis, dyslipidemia, complete heart block s/p pacemaker (2018), history of CVA/ICH (2011))
Past Surgical History: Other (gastrostomy tube, pacemaker, hernia repair, J-tube)
Social History
Tobacco: Non-Smoker
Alcohol: None
Family History
Family History: Reviewed & Not Pertinent
Allergies / Home Medications
Allergy/AdvReac Type Severity Reaction Status Date / Time
lisinopril Allergy Tongue Verified 01/02/24 11:13
Swelling
Xeeeaqf-QAD-GvV Reductase Allergy jaundice Verified 01/02/24 11:13
Inhibitor
[Cdzolwl-Tkv-Wqe Reductase
Inhibitor]
�Medication �Instructions �Recorded
ascorbic acid (vitamin C) 500 mg 500 mg feeding tube DAILY 07/19/17
tablet (Vitamin C)
cholecalciferol (vitamin D3) 25 1,000 units feeding tube Q48H 07/19/17
mcg (1,000 unit) tablet
famotidine 40 mg tablet 40 mg feeding tube BID ##60 08/15/17
losartan 100 mg tablet 100 mg feeding tube DAILY ##30 08/15/17
potassium chloride 20 mEq/15 mL 20 meq (15 mL) feeding tube DAILY 08/15/17
oral liquid ##30
clopidogrel 75 mg tablet 75 mg feeding tube DAILY ##30 08/26/17
metoprolol tartrate 75 mg tablet 75 mg feeding tube BID Blood 01/02/24
Pressure
atorvastatin 40 mg tablet 20 mg feeding tube QPM High 08/02/24
Cholesterol
furosemide 20 mg tablet 20 mg PO DAILY Fluid 08/02/24
Retention/Swelling
amoxicillin 200 mg-potassium 22 ml feeding tube BID #330 mL 08/07/24
clavulanate 28.5 mg/5 mL oral
suspension
miconazole nitrate 2 % topical 1 applic topical BID #85 grams 08/07/24
powder (Miconazorb AF)
Review of Systems
-
All other systems: A 12 pt ROS was Negative except as stated above in HPI
Vital Signs
Temp Pulse Resp BP Pulse Ox
98.3 F 79 16 144/74 95
08/07/24 07:54 08/07/24 08:02 08/07/24 08:02 08/07/24 07:54 08/07/24 08:25
Physical Exam
Exam
General: NAD
HEENT: MMM, anicteric, no lymphadenopathy
Heart: Regular, no murmurs
Lungs: CTA anteriorly
Abdomen: normal bowel sounds, soft, no tenderness, no rebound or guarding, no masses, bruits or ascites, PEG site clean, dry and intact with a 20 Japanese balloon removable PEG, with midline hernia which is soft and nontender
Extremeties: no edema
Skin: no rashes
Results
WBC 5.4 10^3/uL (4.8-10.8) 08/06/24 09:34
Hgb 12.3 g/dL (13.0-18.0) L 08/06/24 09:34
Hct 36.5 % (39.0-52.0) L 08/06/24 09:34
MCV 102.2 fL (80.0-94.0) H 08/06/24 09:34
Plt Count 120 10^3/uL (130-400) L 08/06/24 09:34
Absolute Neuts (auto) 7.2 10^3/uL (1.4-6.5) H 08/02/24 02:35
Sodium 136 mmol/L (135-145) 08/06/24 09:33
Potassium 4.2 mmol/L (3.5-5.1) 08/06/24 09:33
Chloride 99 mmol/L (98-107) 08/06/24 09:33
Carbon Dioxide 34 mmol/L (22-30) H 08/06/24 09:33
BUN 25 mg/dl (9-20) H 08/06/24 09:33
Creatinine 0.7 mg/dL (0.7-1.3) 08/06/24 09:33
Calcium 8.0 mg/dl (8.4-10.2) L 08/06/24 09:33
Total Bilirubin 2.5 mg/dl (0.2-1.3) H 08/04/24 04:39
AST 29 U/L (17-59) 08/04/24 04:39
ALT 14 U/L (0-50) 08/04/24 04:39
Alkaline Phosphatase 71 U/L (38-126) 08/04/24 04:39
Diagnostic Image Results:
Prior GI Procedures:
EGD:
Colonoscopy:
Assessment / Plan
-
1. PEG tube malfunction: With difficulty initiating some tube feeds, with obvious inclusions within the PEG tube lumen. Will switch out his PEG tube to a balloon removal replacement PEG today.
-
-
Thank you for consultation and allowing me to participate in the patient's care. Please call the nutrition faculty member GI physician during the after hours with any questions or concerns.
--- NOTE | 2024-08-07 13:06 | CM ---
Patient stable for d/c today.
CM spoke w/ patient's spouse to update on d/c and to confirm resumption of services. Spouse shared that patient is current w/ [facility] and has [facility]. CM inquired about activeness w/ [facility],
spouse shared patient is no longer active at this time and is agreeable to refer to them again. Spouse shared she and her son will transport patient home.
CM called [facility], confirmed services d/c in June but are happy to service patient again following a referral.
CM faxed [facility] referral to [phone]
IMM verbally reviewed, copy on chart
[facility]
- FAX D/C INSTRUCTIONS AND SUMMARY
Plan: Home w/ [facility]. [facility] of [facility] w/ [facility].
[2024-08-07] MEDS: AUGMENTIN 250 MG/5 ML 875 MG TUBE (13:27)
--- NOTE | 2024-08-07 14:02 | W.DCSUMMARY ---
Addendum entered and electronically signed by Nelli Marin MD 08/07/24 14:24:
GI unable to deflate balloon for PEG exchange and traction removal not attempted given patient is on Plavix and there is a risk of bleeding. Plan discussed with . This PEG is continued for now. If becomes unable to use then plan will be made
for endoscopy with endoscopic deflation of balloon. Plavix would need to be held.
Original Note:
Discharge Summary
Discharge Data
Date of Admission: 08/02/24
Date of Discharge: 08/07/24
-
Pending Results: No
Hospital Course
Discharging Physician : Dr. Nelli Marin
Disposition : Home with Home Health
Principal Discharge diagnosis : Aspiration Pneumonia
Hospital Course :
Mr. Alberto Newton is a 88 yo man with hx CVA with residual right-sided hemiparesis, dysarthria and dysphagia s/p PEG on TF presents to the ER with shortness of breath. He was found to be hypoxic post vomiting. He required high flow. In the ER
he was febrile to 103.1, HR 94, RR 30. Labs with WBC 7.9, Hg 14.6, Na 129, Cr 0.7, Lactate 2. He received fluids in the ER, required initiation of Levophed for persistent hypotension and was admitted to the ICU. He was started on IV Zosyn for
septic shock 2/2 aspiration pneumonia. Patient's blood cultures returned positive for Strep Oralis/Mitis.
Patient's lactate increased to 16.3 but then resolved. He was weaned off pressors and weaned off of oxygen. He was seen by ID for bacteremia, blood cultures cleared. He received 6 days IV antibiotics then transitioned to Liquid Augmentin via tube
to complete a 14 day course on discharge.
GI plans to exchange PEG tube prior to discharge (as hard for patient to transport for this procedure at home).
Time spent on discharge was 35 minutes.
Important imaging findings :
CXR 08/02/24
IMPRESSION: Small bilateral pleural effusions and adjacent atelectasis/consolidation, right greater than left.
Procedure findings :
Discharge Plan
-
Patient Disposition: Home with Home Care
Discharge Diagnosis/Procedures: Bacteremia
Diet: Tube feeding
Activity: As tolerated
Driving Restrictions: No driving
Bathing Restrictions: None
Other Services: VN, PT and OT
Referrals:
UNKNOWN - PT DOES,NOT KNOW [Family Provider] -
Additional Discharge Medication Instructions: You have 7 1/2 more days of antibiotics to complete a 14 day course
Prescriptions:
New
miconazole nitrate [Miconazorb AF] 2 % Powder
1 applic topical BID Qty: 85 0RF
amoxicillin-pot clavulanate 200-28.5 mg/5 mL Suspension For Reconstitution
22 ml feeding tube BID Qty: 330 0RF
Continued
ascorbic acid (vitamin C) [Vitamin C] 500 MG tablet
500 mg feeding tube DAILY 0RF
cholecalciferol (vitamin D3) 1,000 UNITS tablet
1,000 units feeding tube Q48H 0RF
clopidogrel 75 MG tablet
75 mg feeding tube DAILY Qty: 30 0RF
metoprolol tartrate 75 mg Tablet
75 mg feeding tube BID
furosemide 20 mg Tablet
20 mg PO DAILY
atorvastatin 40 MG tablet
20 mg feeding tube QPM
famotidine 40 MG tablet
40 mg feeding tube BID Qty: 60 0RF
potassium chloride 20 MEQ/15 ML liquid
20 meq feeding tube DAILY Qty: 30 0RF
losartan 100 MG tablet
100 mg feeding tube DAILY Qty: 30 0RF
Discharge Orders:
Discharge Patient (As Directed); Ordered 08/07/24
Ordered By: Nelli Marin
Discharge Date and Time
Print Language: CROATIAN
--- NOTE | 2024-08-07 14:18 | W.PN.UPDATE ---
Update Note
Progress Note Update
Attempted to replace balloon PEG at bedside, though unable to deflate balloon despite multiple attempts and maneuvers. We discussed traction removal though the on Plavix increases risk of bleeding. The PEG does flush easily without any resistance.
I discussed at length with his . Will continue this PEG for now. If he gets to the point where he is unable to use then could plan endoscopy with endoscopic deflation of balloon. Would like to not hold Plavix for 7 days given his history of
stroke in the past. Again, his PEG is functioning now and flushing easily without difficulty.
--- NOTE | 2024-08-07 15:31 | PN.CDI ---
CDI
- -
CDI:
Physician Documentation Request
Admit Date: 08/02/24 05:16
Dear Doctor Tania,
Patient admitted with sepsis.
08/03 Nursing skin assessment, 'Stage 1 left ear pressure injury.'
Physician documentation of the type and location of wounds is required for compliant documentation. Based on the above clinical findings and your assessment, please provide the following in your progress note:
1. Location of the ulcer/wound, including laterality.
2. Type (etiology) of ulcer/wound:
- Diabetic ulcer
- Arterial (ischemic) ulcer
- Traumatic wound
- Venous stasis ulcer
- Pressure (decubitus) ulcer
- Non-healing surgical wound
- Other
- Unable to determine
3. For a non-pressure ulcer, please indicate the depth/severity:
- Limited to the breakdown of skin
- With fat layer exposed
- With necrosis of muscle
- With necrosis of bone
- Other
- Unable to determine
4. If a pressure ulcer, please also include the stage* of the ulcer:
- Stage 1 - Skin intact, non-blanchable redness
- Stage 2 - Partial thickness loss of dermis, includes intact or open blister
- Stage 3 - Full thickness tissue not including bone, tendon or muscle
- Stage 4 - Full thickness tissue loss, including exposed bone, tendon or muscle
- Unstageable - Full thickness loss in which the base of the ulcer is covered by slough (yellow, mccollum, medrano, green or brown) and/or eschar (mccollum, brown or black) in the wound bed.
- Unable to determine
Use of terms such as suspected, likely, concern for, or probable (associated with a specific diagnosis that is being evaluated, monitored, or treated as if it exists) are acceptable and can be coded in the inpatient setting, when documented at the
time of discharge.
Thank you,
Ivania SCHMITTN,RN,CCDS
CDI Specialist
Available via [place] text
Please use your independent medical judgment in providing your response.
*Source: National Pressure Ulcer Advisory Panel (NPUAP)
[2024-08-07 15:32] VITALS: BP 150/83
== END 2024-08-07 17:58 | disposition home health service (06) | DRG 871 ==
LOC: 4 WEST ACU 05:16
PROVIDERS: Internal Medicine; Nurse Practitioner Primary Care; ADMITTING PHYSICIAN Hospitalist; ATTENDING PHYSICIAN Student in an Organized Health Care Education/Training Program; CONSULT PHYSICIAN Internal Medicine Critical Care Medicine; CONSULT PHYSICIAN Internal Medicine Gastroenterology; EMERGENCY PHYSICIAN Emergency Medicine; OTHER PHYSICIAN Internal Medicine Infectious Disease
DX: A41.9 Sepsis, unspecified organism (principal); J15.9 Unspecified bacterial pneumonia; R65.21 Severe sepsis with septic shock; J18.9 Pneumonia, unspecified organism; J96.01 Acute respiratory failure with hypoxia; J69.0 Pneumonitis due to inhalation of food and vomit; J96.90 Respiratory failure, unspecified, unspecified whether with hypoxia or hypercapnia; E87.1 Hypo-osmolality and hyponatremia; I69.351 Hemiplegia and hemiparesis following cerebral infarction affecting right dominant side; I44.2 Atrioventricular block, complete; E87.3 Alkalosis; K94.23 Gastrostomy malfunction; J98.11 Atelectasis; L89.811 Pressure ulcer of head, stage 1; J90 Pleural effusion, not elsewhere classified; I69.322 Dysarthria following cerebral infarction; I10 Essential (primary) hypertension; Z95.0 Presence of cardiac pacemaker; E78.00 Pure hypercholesterolemia, unspecified; G47.33 Obstructive sleep apnea (adult) (pediatric); D69.59 Other secondary thrombocytopenia; E87.8 Other disorders of electrolyte and fluid balance, not elsewhere classified; I87.2 Venous insufficiency (chronic) (peripheral); K21.9 Gastro-esophageal reflux disease without esophagitis; E87.6 Hypokalemia; I27.20 Pulmonary hypertension, unspecified; I08.0 Rheumatic disorders of both mitral and aortic valves; Z87.891 Personal history of nicotine dependence; Z11.52 Encounter for screening for COVID-19; Z82.49 Family history of ischemic heart disease and other diseases of the circulatory system; Z79.02 Long term (current) use of antithrombotics/antiplatelets
CPT/HCPCS: 71045; 80048; 80051; 80053; 82805; 83605; 83735; 83880; 84100; 84145; 84484; 85025; 85027; 87040; 87070; 87077; 87205; 87449; 87502; 87811; 87899; 93005; 93306; 94640; 96365; 96375; 97163; 97167; 97530; 97535; 99291; Q9957

== ENCOUNTER 2024-10-08 06:10 | Day surgery (SDC) | payer OTHER, SELFPAY ==
[2024-10-08 12:56] VITALS: BMI 29.6
[2024-10-08 12:57] VITALS: BMI 29.6
[2024-10-08 12:58] VITALS: BP 153/96
[2024-10-08 15:07] VITALS: BP 165/83
[2024-10-08 15:15] VITALS: BP 167/84
[2024-10-08 15:30] VITALS: BP 174/85
== END 2024-10-08 15:40 | disposition home or self-care (01) ==
LOC: SDS 06:10
PROVIDERS: ATTENDING PHYSICIAN Specialist
DX: K94.23 Gastrostomy malfunction (principal); Y83.3 Surgical operation with formation of external stoma as the cause of abnormal reaction of the patient, or of later complication, without mention of misadventure at the time of the procedure
CPT/HCPCS: 43246